=== PATIENT | male | born 1945 | race Caucasian/White ===

== ENCOUNTER 2019-11-29 22:05 | Inpatient (IN) | payer MEDICARE, BC ==
[~2019-11-29 22:05] MED LIST: Iopamidol-370 76% 500 ML 1 ML ONE
[2019-11-29 22:56] LABS: ALT (SGPT) 109 U/L (8-55); AST (SGOT) 140 U/L (5-34); Albumin 3.3 g/dL (3.4-4.8); Alkaline Phosphatase 559 U/L (40-110); Anion Gap 14 mmol/L (10-20); BUN (Urea Nitrogen) 15 mg/dL (8.4-25.7); Bilirubin, Total 5.4 mg/dL (0.2-1.2); Calc. Creatinine Clearance 0 mL/min (70-130); Calcium 9.2 mg/dL (7.8-10.44); Carbon Dioxide 22 mmol/L (23-31); Chloride 105 mmol/L (98-107); Estimated GFR-MDRD 89; Globulin 3.8 g/dL (2.4-3.5); Glucose 109 mg/dL (83-110); Potassium 4.2 mmol/L (3.5-5.1); Protein, Total 7.1 g/dL (5.8-8.1); Sodium 137 mmol/L (136-145)
[2019-11-29] MEDS ORDERED: Aspirin Chewable 81 MG TAB ONE (23:10)
[2019-11-29 23:12] LABS: #Eosinphils 0.1 thou/uL (0.0-0.7); #Lymphocytes 0.2 thou/uL (1.20-3.40); #Monocytes 0.4 thou/uL (0.11-0.59); #Neutrophils 2.6 thou/uL (1.40-6.50); %Basophils 0.5 % (0.0-1.0); %Eosinophils 1.9 % (0.0-10.0); %Lymphocytes 5.5 % (21.0-51.0); %Neutrophils 80.2 % (42.0-75.0); Hemoglobin 14.2 g/dL (14.0-18.0); Mean Corpuscular HGB CONC 32.2 g/dL (32.0-36.0); Mean Corpuscular Hemoglobin 30.8 pg (27.0-31.0); Mean Corpuscular Volume 95.6 fL (78.0-98.0); Mean Platelet Volume 10.3 fL (7.4-10.4); Platelet Count 37 thou/uL (130-400); RBC Distribution Width 15.1 % (11.5-14.5); White Blood Cell (WBC) Count 3.3 thou/uL (4.8-10.8)
[2019-11-29 23:30] LABS: Platelet Morphology Comment Appears Decreased; RBC Morphology Normal
[2019-11-29] MEDS ORDERED: hydrALAZINE 20 MG/ML VIAL ONE (23:52)
--- NOTE | 2019-11-29 23:58 | CT ---
CT ABDOMEN AND PELVIS WITH IV CONTRAST 11/29/2019 CLINICAL INFORMATION: Patient with history of liver cancer and colon cancer with worsening abdominal pain. COMPARISON: None. Technique: Multiple contiguous axial CT images are obtained through the abdomen and pelvis with IV contrast. Cor onal reformatted images are provided. FINDINGS: Lower Chest: There is bibasilar atelectasis. There is increased pleural density left lung base which could be related to trace pleural thickening as opposed to trace pleural fluid. If this does represent pleural fluid, this has increased density which is more suggestive of tiny amount of hemorr leon. Median sternotomy wires are present. There is partial visualization of aortic valve replacement. Vessels: Vascular calcifications are seen in the abdominal aorta and involving the iliac arteries. Abdomen: Portal vein:Patent Gallbladder: Decompressed, but there is suggestion of gallbladder wall thickening/edema which is nons pecific. Liver: Small in size with hypertrophy of the caudate lobe of the liver. Margins of the liver demonstr ate a nodular contour. An irregular low density area is seen in the lateral segment left hepatic lobe which may represent either a metastatic lesion or hepatocellular carcinoma. Spleen: Enlarged measuring 16.7 cm in craniocaudal dimensions. Pancreas: within normal limits. Adrenals: within normal limits. Kidneys: within normal limits. Bowel: Postoperative changes region of the rectum. Small amount retained fecal material seen througho ut the colon. There are postoperative changes in the region of the cecal apex which may be related to prior appendectomy. Postoperative changes related to anastomosis involving small bowel loop right lower quadrant is seen. Peritoneum: Small amount of fluid is seen in a presacral location. Trace amount of free fluid is also seen adjacent to the liver. Mesentery and Retroperitoneum: No enlarged mesenteric or retroperitoneal lymph nodes. Abdominal Wall: within normal limits. Pelvis: Reproductive Organs: No pelvic masses. Pelvis within normal limits. Bladder: within normal limits. Bones: Degenerative changes are seen in the spine with bilateral hip osteoarthritis. IMPRESSION: 1. Evidence of cirrhosis with a irregular hypodense lesion in the lateral segment left hepatic lobe w orrisome for neoplastic process. This could represent metastatic lesion or primary hepatic malignancy. 2. Gallbladder is incompletely distended, but the gallbladder wall does appear mildly thickened/edema tous. This is overall nonspecific and can be seen with hypoproteinemia, cholecystitis in the correct clinical scenario, secondary to liver disease versus other etiologies. 3. Splenomegaly. 4. Postoperative changes of loops of bowel in the abdomen. 5. Fluid in a presacral location with tiny amount of free fluid in the right upper quadrant. 6. Increased pleural density left lung base which is felt to be related to trace amount of pleural th ickening as opposed to trace hemorrhage in the pleural space.
--- NOTE | 2019-11-30 00:07 | RAD ---
EXAM: CHEST ONE VIEW HISTORY: Chest pain COMPARISON: None FINDINGS: Postoperative changes related to median sternotomy and cardiac valve replacement are noted. Pulmonary vasculature is within normal limits. There is linear scarring versus atelectasis present at each lung base. No consolidation or pleural fluid is appreciated on this exam. Vas calcifications are seen in the thoracic aorta. Degenerative changes are seen in the spine. IMPRESSION: No acute cardiopulmonary process
[2019-11-30 02:03] LABS: Troponin I 0.044 ng/mL (< 0.028)
[2019-11-30 05:14] LABS: Troponin I 0.025 ng/mL (< 0.028)
[2019-11-30] MEDS ORDERED: Ondansetron PF 4 MG/2 ML Vial ONE (06:37)
[2019-11-30] MEDS ORDERED: traMADol HCl 50 MG TAB PO PRN ×3 (10:57→16:45)
[2019-11-30] MEDS ORDERED: Ondansetron ODT 4 MG TAB PO PRN ×2 (10:57→11:17)
[2019-11-30] MEDS ORDERED: Ondansetron PF 4 MG/2 ML Vial IVP PRN (11:17)
[2019-11-30] MEDS ORDERED: Senokot S 8.6-50 MG TAB PO PRN (11:17)
[2019-11-30] MEDS ORDERED: Guaifenesin DM 100-10/5 ML UDCUP PO PRN (11:17)
--- NOTE | 2019-11-30 12:30 | HP ---
PRIMARY CARE PHYSICIAN: Dr. Tomlinson in [place]. LOCAL ONCOLOGIST: Dr. Velazquez. CHIEF COMPLAINT: High blood pressure and abdominal pain. HISTORY OF PRESENT ILLNESS: This is a 74-year-old white male with a past medical history of hypertension, hyperlipidemia, and AFib prior to a heart valve replacement years ago. He was diagnosed with colon cancer resected 10 years ago with an ostomy placed and then, a reconnection done fine with that until May of 2019, this year, and he had upper abdominal pain. Then, he went in and was seen by his primary care doctor, who diagnosed him with a liver mass. He was sent to [facility], they did a biopsy, and he was being treated with chemotherapy by his doctor at [facility] in conjunction with Dr. Velazquez, his local oncologist. The chemotherapy infusions were stopped a week or 2 ago and he was started on a new medication yesterday. His first dose of lenvatinib. He got his first dose yesterday morning and then, yesterday afternoon, he started having worsening of his "chronic abdominal pain and became very severe, right-sided, radiating to the left. It feels like a throbbing or similar pain like a toothache. Associated with his increased pain, he also started having some elevated blood pressures. He is not certain exactly how high they got, but they were over 100 on the diastolic side. He did call Dr. Velazquez's office and mentioned they told him to go into the emergency room. In the ER, the patient initially had blood pressure of 171/95, did get as high as 192/88 here. The patient was given Nitro-Bid and hydralazine along with a dose of aspirin and Zofran. His blood pressure has now come down to normal 129/77. His pain is back down to normal as well. He does have some underlying shortness of breath. This has been going on for a while, but no other new symptoms. REVIEW OF SYSTEMS: CONSTITUTIONAL: No fevers. No chills. EYES: No double vision or blurred vision. ENT: No congestion, drainage, or sore throat. CARDIOVASCULAR: No chest pain. No palpitations or racing heart. PULMONARY: Some mild shortness of breath that is at his baseline. No coughing, wheezing, or chest tightness. GASTROINTESTINAL: See HPI. He did have some nausea and vomiting about 3 times since yesterday. He does not usually get nauseated and vomit. He did have some constipation that has been relieved with daily, he thinks MiraLAX. Occasionally, he will have loose stool or diarrhea from that, but no more constipation. GENITOURINARY: No dysuria or hematuria. He has had some very dark urine. MUSCULOSKELETAL: No muscle aches, joint pain. SKIN: No rashes or lesions noted. NEUROLOGIC: No numbness, tingling, or focal weakness. PAST MEDICAL HISTORY: 1. Hypertension. 2. Hyperlipidemia. 3. Colon cancer. 4. Liver metastases. Uncertain if it is from his colon cancer. 5. Atrial fibrillation, resolved with previous ablation. PAST SURGICAL HISTORY: 1. Heart valve replacement. He is not sure which valve, possibly the aortic valve. 2. Atrial ablation. 3. Appendectomy. 4. Colostomy with later revision. 5. Liver biopsy. SOCIAL HISTORY: The patient used to drink daily. He quit in May of 2019 with his diagnosis of liver mass. No tobacco or illicit drug use. He is . He is a full code. Should he be incapacitated, his would be his medical decision maker. Her name is Citlaly Villeda. FAMILY HISTORY: Mother of leukemia at age 86. Dad had hardening of the arteries. ALLERGIES: NO KNOWN DRUG ALLERGIES. CURRENT MEDICATIONS: 1. Lenvatinib 10 mg daily. 2. Aspirin 81 mg daily. 3. Atorvastatin 10 mg daily. 4. Lisinopril 10 mg daily. 5. Ondansetron as needed. 6. Protonix 40 mg daily. 7. Tramadol 50 mg as needed. 8. MiraLAX daily. PHYSICAL EXAMINATION: VITAL SIGNS: Blood pressure 129/77, pulse 78, respirations 18, temperature 98.4, O2 saturation 98% on room air. GENERAL: This is a well-developed, thin elderly male in no acute distress. HEENT: Pupils equal, round, and reactive to light. Little bit of scleral icterus. Oropharynx clear without lesions, erythema, or exudate. NECK: Supple. No lymphadenopathy. No thyroid nodules or enlargement. No JVD. HEART: Regular rate and rhythm. No murmurs, rubs, or gallops. LUNGS: Clear to auscultation bilaterally. No wheezes, crackles, or rhonchi. ABDOMEN: Soft. Does have tenderness to palpation in the midepigastric right upper quadrant and to the right of the umbilicus, specifically, and then, there is mild tenderness to palpation throughout. No specific masses palpable. No hepatosplenomegaly. Normoactive bowel sounds. EXTREMITIES: No clubbing, cyanosis, or edema. SKIN: No rashes or lesions noted. NEUROLOGIC: The patient moves all extremities equally. No facial droop. PSYCHIATRIC: Alert and oriented x3. Normal mood and affect. LABORATORY DATA: White blood cell count 3.3 with 80% neutrophils. Hemoglobin and hematocrit are normal, platelet count 37 with no previous to compare. Complete metabolic panel is notable for a carbon dioxide of 22, a total bilirubin of 5.4, up from 1.6 last month. AST of 140, ALT of 109, alkaline phosphatase of 559, albumin of 3.3. The rest was normal. Brain natriuretic peptide was mildly elevated at 118. His troponins were indeterminate at 0.029, second was 0.044, last one was 0.025. CK-MB was negative. EKG done in the emergency room shows normal sinus rhythm with some left atrial enlargement, some left axis deviation and left ventricular hypertrophy. No significant ST-segment changes or T-wave inversions. Chest x-ray, I did review the chest x-ray done in the emergency room along with the radiologist's report. There is no acute cardiopulmonary process visualized. There is an old valve replacement. CT of the abdomen and pelvis done in the emergency room with contrast shows evidence of cirrhosis with an irregular hypodense lesion in the lateral segment of the left hepatic lobe, worrisome for neoplastic process. Also, with gallbladder incompletely distended, but gallbladder wall is mildly thickened, splenomegaly, with postoperative changes of loops of bowel in the abdomen, and there is a fluid in the presacral location with a tiny amount of free fluid in the right upper quadrant and increased pleural density in left lung base, likely pleural thickening. ASSESSMENT: 1. Elevated blood pressure likely secondary to the patient's increased pain, now improved. We will monitor in the hospital. I will make sure it does not go up without further medication administered. Might need to increase his home medications. We will discontinue the home medicines right now. 2. Indeterminate troponin, likely due to cardiac strain from the elevated blood pressures. No evidence of acute coronary syndrome. 3. Chronic abdominal pain from cancer with severe worsening, possibly a side effect of his chemotherapy medication. We will hold that medicine for now. We will consult Dr. Velazquez to give recommendations for where to go from here, and if the patient should continue medicine or if it needs to be stopped. 4. Gastrointestinal prophylaxis. We will continue the patient's Protonix. 5. Hyperlipidemia. We will continue the patient's statin. 6. Deep venous thrombosis prophylaxis. We will put the patient on sequential compression devices while in bed. No heparin or Lovenox due to his severely low platelets. CODE STATUS: The patient is a full code. Should he be incapacitated, his Citlaly Villeda will be his medical decision maker. I will have Palliative Care connect up with the patient in the hospital. Job ID: [id number]
[2019-11-30] MEDS ORDERED: Morphine 2 MG/ML VIAL SLOW IVP PRN (16:15)
[2019-11-30] MEDS ORDERED: Nitroglycerin 2% Ointment 1 INCH/1 GM Packet TOP PRN (17:38)
[2019-11-30] MEDS: Atorvastatin Calcium 10 MG TAB PO SCH (20:26)
--- NOTE | 2019-11-30 20:51 | CON ---
DATE OF CONSULTATION: REASON FOR CONSULT: Hepatocellular carcinoma. HISTORY OF PRESENT ILLNESS: Mr. Villeda is a 74-year-old gentleman with a history of alcohol cirrhosis, hypertension, atrial fibrillation, and past history of T2 N0 adenocarcinoma of the rectum in 2009. He underwent chemotherapy and radiation therapy at [facility] by Dr. Weiss. Recently, he was diagnosed with hepatocellular carcinoma associated with portal vein thrombosis. He underwent treatment with Tecentriq and bevacizumab at [facility] and tolerated poorly. He saw Dr. Weiss earlier this month, who recommended starting lenvatinib. The patient took his first dose of 4 mg yesterday morning. Yesterday afternoon, he began to have worsening abdominal pain and elevated blood pressure. He was sent to the emergency room for evaluation. His initial blood pressure was 171/95. He was given nitro sublingual and hydralazine and started on a Nitro-patch. This morning, he began to have nausea and vomiting with a headache. He was admitted for hypertension. The patient has chronic abdominal pain with diarrhea. He takes Protonix and tramadol at home. He took an extra dose last night with no improvement in his abdominal pain. Currently, he denies any shortness of breath. He does have some abdominal tenderness, but much improved from this morning. He complains of fatigue. PAST MEDICAL HISTORY: 1. Hepatocellular carcinoma. 2. Portal vein thrombosis. 3. Rectal adenocarcinoma. 4. Hypertension. 5. Atrial fibrillation. 6. Cirrhosis. PAST SURGICAL HISTORY: 1. Appendectomy. 2. Aortic valve replacement. 3. Colon resection. ALLERGIES: NO KNOWN DRUG ALLERGIES. HOME MEDICATIONS: 1. Aspirin 81 mg. 2. Atorvastatin 10 mg. 3. Lisinopril 10 mg. 4. Tramadol 50 mg p.r.n. 5. Zofran p.r.n. 6. Lenvatinib 4 mg daily. FAMILY HISTORY: Mother had leukemia and breast cancer. SOCIAL HISTORY: , has 2 children. Lives with his spouse. Long-standing history of alcohol abuse, quit earlier this year. Chews tobacco. REVIEW OF SYSTEMS: A 10-point review of systems is negative except for noted in HPI. PHYSICAL EXAMINATION: VITAL SIGNS: Pulse 78, respiratory rate 18, temperature is 98.4, BP is 129/77, and he is 98% on room air. GENERAL: Chronically ill-appearing male, in no acute distress. HEENT: Normocephalic and atraumatic. Pupils are equal and reactive to light. Sclerae are icteric. NECK: Supple. CV: Regular rate and rhythm. LUNGS: Clear anterior. ABDOMEN: Soft and nontender. Bowel sounds are positive. EXTREMITIES: No clubbing or cyanosis. SKIN: No rash. Slightly jaundiced. NEUROLOGIC: Nonfocal. PERTINENT LABORATORY DATA AND X-RAYS: WBCs are 3.3, hemoglobin 14.2, hematocrit 44, platelet count is 37,000. He has 80% neutrophils, 5% lymphocytes. Sodium is 137, potassium 4.2, chloride 105, CO2 is 22, BUN is 15, creatinine 0.85, calcium 9.2, bilirubin 5.2, AST is 140, ALT is 109, alkaline phosphatase is 559. Troponin is 0.025. BNP is 118. Serum total protein is 7.1, albumin 3.3, globulin 3.8, and lipase is 62. Abdominal and pelvis CT shows a cirrhotic liver with a hypodense lesion in the left hepatic lobe. It shows thickened gallbladder, splenomegaly and postoperative changes from his lower anterior resection. ASSESSMENT: 1. Hepatocellular carcinoma. 2. Acute transaminitis. 3. Hypertension. 4. Acute on chronic abdominal pain. DISCUSSION: The patient's pain has improved since his admission. His blood pressure is also stable. His bilirubin has increased from 1.6 to 5.4 today, possibly secondary to progression of disease. The patient has been off treatment for the last several weeks. We will continue his tramadol for pain and add low-dose morphine for severe pain. His lenvatinib has been held. Hypertension and headache are side effect from this medication, although it is unlikely that one dose would cause worsening of blood pressure, we will hold it for now and possibly rechallenge prior to discharge. Palliative Care will see the patient to discuss goals of care. Thank you for the consult. Case has been discussed with Dr. Velazquez. Job ID: [id number]
[2019-12-01 02:17] LABS: Troponin I 0.015 ng/mL (< 0.028)
[2019-12-01 04:53] LABS: #Eosinphils 0.1 thou/uL (0.0-0.7); #Lymphocytes 0.4 thou/uL (1.20-3.40); #Monocytes 0.4 thou/uL (0.11-0.59); #Neutrophils 1.7 thou/uL (1.40-6.50); %Eosinophils 2.7 % (0.0-10.0); %Lymphocytes 14.9 % (21.0-51.0); %Monocytes 14.7 % (0.0-10.0); %Neutrophils 67.6 % (42.0-75.0); Hemoglobin 12.9 g/dL (14.0-18.0); Mean Corpuscular HGB CONC 31.4 g/dL (32.0-36.0); Mean Corpuscular Hemoglobin 30.2 pg (27.0-31.0); Mean Corpuscular Volume 96.3 fL (78.0-98.0); Mean Platelet Volume 10.7 fL (7.4-10.4); Platelet Count 33 thou/uL (130-400); RBC Distribution Width 15.3 % (11.5-14.5); Red Blood Cell (RBC) Count 4.28 mill/uL (4.70-6.10); White Blood Cell (WBC) Count 2.5 thou/uL (4.8-10.8)
[2019-12-01 05:03] LABS: Anion Gap 12 mmol/L (10-20); BUN (Urea Nitrogen) 19 mg/dL (8.4-25.7); Calc. Creatinine Clearance 92 mL/min (70-130); Calcium 8.9 mg/dL (7.8-10.44); Carbon Dioxide 26 mmol/L (23-31); Chloride 105 mmol/L (98-107); Estimated GFR-MDRD 89; Glucose 86 mg/dL (83-110); Potassium 4.6 mmol/L (3.5-5.1); Sodium 138 mmol/L (136-145)
[2019-12-01 05:08] LABS: Troponin I 0.014 ng/mL (< 0.028)
--- NOTE | 2019-12-01 08:03 | PDOC.HOSPP ---
- Subjective Encounter Date: 12/01/19 Encounter Time: 10:30 Subjective: Patient with resolution of abdominal pain. No other complaints. BP doing well overnight. - Objective Vital Signs & Weight: Vital Signs (12 hours) Temp Pulse Resp BP Pulse Ox 12/01/19 04:36 98.9 F 76 16 111/58 L 95 Weight Weight 182 lb 9.6 oz I&O: 11/30/19 12/01/19 12/02/19 06:59 06:59 06:59 Intake Total 720 Balance 720 Result Diagrams: 12/01/19 04:30 12/01/19 04:30 Hospitalist ROS - Review of Systems Constitutional: denies: fever, chills Respiratory: reports: shortness of breath (mild, baseline). denies: cough Cardiovascular: denies: chest pain, palpitations Gastrointestinal: denies: nausea, vomiting, abdominal pain - Medication Medications: Active Medications Generic Name Dose Route Start Last Admin Trade Name Freq PRN Reason Stop Dose Admin Atorvastatin Calcium 10 mg 11/30/19 21:00 11/30/19 20:26 Lipitor PO 10 mg HS EULALIA Administration Ondansetron HCl 4 mg 11/30/19 10:57 11/30/19 16:34 Zofran Odt PO 4 mg Q4H PRN Administration Nausea/Vomiting Tramadol HCl 100 mg 11/30/19 16:14 11/30/19 16:28 Ultram PO 100 mg Q4H PRN Administration Moderate Pain (4-6) - Exam General Appearance: NAD, awake alert Eye: scleral icterus ENT: moist mucosa Heart: RRR, no murmur, no gallops, no rubs Respiratory: CTAB, no wheezes, no rales, no ronchi Gastrointestinal: soft, non-tender, non-distended, normal bowel sounds Psychiatric: normal affect, normal behavior, A&O x 3 Hosp A/P (1) Hepatocellular carcinoma Code(s): C22.0 - LIVER CELL CARCINOMA Status: Acute (2) Abdominal pain Code(s): R10.9 - UNSPECIFIED ABDOMINAL PAIN Status: Acute (3) Hypertension Code(s): I10 - ESSENTIAL (PRIMARY) HYPERTENSION Status: Chronic Qualifiers: Hypertension type: essential hypertension Qualified Code(s): I10 - Essential (primary) hypertension (4) Hyperlipidemia Code(s): E78.5 - HYPERLIPIDEMIA, UNSPECIFIED Status: Chronic (5) Elevated LFTs Code(s): R79.89 - OTHER SPECIFIED ABNORMAL FINDINGS OF BLOOD CHEMISTRY Status : Acute (6) Pancytopenia Code(s): D61.818 - OTHER PANCYTOPENIA Status: Acute - Plan Holding Lenvatinib. Given elevated transaminases will go ahead and hold statin as well Bilirubin continuing to climb, checking U/S gallbladder but suspect due to HCC progression Disposition per oncology- trying to set up transfer to [facility] No lovenox/heparin due to thrombocytopenia, on SCDs
[2019-12-01] MEDS ORDERED: LENVATINIB MESYLATE 4 MG PO SCH (09:00)
[2019-12-01] MEDS ORDERED: Enoxaparin Sodium 40 MG/0.4 ML SYRINGE SC SCH (09:00)
[2019-12-01 09:13] LABS: ALT (SGPT) 143 U/L (8-55); AST (SGOT) 185 U/L (5-34); Alkaline Phosphatase 532 U/L (40-110); Bilirubin, Direct 6.1 mg/dL (0.1-0.3); Protein, Total 6.5 g/dL (5.8-8.1)
[2019-12-01] MEDS: Aspirin Chewable 81 MG TAB PO SCH (09:33)
[2019-12-01] MEDS: Lisinopril 10 MG TAB PO SCH (09:33)
--- NOTE | 2019-12-01 10:23 | PDOC.MOPN ---
Interval History: pain resolved - Vital Signs Vital Signs: Vital Signs (12 hours) Temp Pulse Resp BP BP Pulse Ox 12/01/19 09:33 122/60 12/01/19 04:36 98.9 F 76 16 111/58 L 95 Weight Weight 182 lb 9.6 oz - Physical Exam General: Alert, Oriented x3, No acute distress HEENT: Atraumatic, PERRLA, EOMI, Mucous membr. moist/pink, Other (jaundice) Lungs: Clear to auscultation, Normal air movement Cardiovascular: Regular rate Abdomen: Normal bowel sounds Neurological: Normal speech - Labs Result Diagrams: 12/01/19 04:30 12/01/19 04:30 Lab results: Laboratory Results - last 24 hr 12/01/19 04:30: Total Bilirubin 8.0 H, Direct Bilirubin 6.1 H, AST 185 H, ALT 143 H, Alkaline Phosphatase 532 H, Serum Total Protein 6.5, Albumin 3.0 L 12/01/19 04:30: Troponin I 0.014 12/01/19 04:30: WBC 2.5 L, RBC 4.28 L, Hgb 12.9 L, Hct 41.2 L, MCV 96.3, MCH 30.2, MCHC 31.4 L, RDW 15.3 H, Plt Count 33 L, MPV 10.7 H, Neutrophils % 67.6, Lymphocytes % 14.9 L, Monocytes % 14.7 H, Eosinophils % 2.7, Basophils % 0.0, Neutrophils # 1.7, Lymphocytes # 0.4 L, Monocytes # 0.4, Eosinophils # 0.1, Basophils # 0.0 12/01/19 04:30: Sodium 138, Potassium 4.6, Chloride 105, Carbon Dioxide 26, Anion Gap 12, BUN 19, Creatinine 0.85, Estimated GFR (MDRD) 89, Glucose 86, Calcium 8.9 12/01/19 01:45: Troponin I 0.015 Status: lab reviewed by me A/P - Problem (1) Elevated LFTs Current Visit: Yes Code(s): R79.89 - OTHER SPECIFIED ABNORMAL FINDINGS OF BLOOD CHEMISTRY Status: Acute (2) Hepatocellular carcinoma Current Visit: Yes Code(s): C22.0 - LIVER CELL CARCINOMA Status: Acute (3) Pancytopenia Current Visit: Yes Code(s): D61.818 - OTHER PANCYTOPENIA Status: Acute - Plan Plan: continue pain meds u/s for gallbladder possible transfer to [facility]
[2019-12-01 11:05] VITALS: BMI 26.9
--- NOTE | 2019-12-01 16:16 | ULT ---
ABDOMINAL ULTRASOUND: 12/01/19 HISTORY: Hepatocellular carcinoma. Elevated bilirubin. FINDINGS: Exam is limited. The pancreas, left lobe of the liver, and abdominal aorta are not visualized due to overlying bowel gas. The right lobe of the liver demonstrates no definite abnormality. The spleen is enlarged measuring 17 .4 cm in length. Small shadowing gallstones are seen. The gallbladder wall is thickened measuring 4 m m. The common duct measures 4 mm in diameter. The kidneys are normal. No evidence of ascites are seen . IVC is unremarkable. IMPRESSION: 1. Limited exam. 2. Splenomegaly. 3. Cholelithiasis with gallbladder wall thickening. POS: OFF
[2019-12-01] MEDS: Atorvastatin Calcium 10 MG TAB PO SCH (20:15)
--- NOTE | 2019-12-02 07:36 | PDOC.HOSPP ---
- Subjective Encounter Date: 12/02/19 Encounter Time: 09:40 Subjective: Patient with stable abdominal pain, improved from admit. Worsened Jaundice. No other complaints. - Objective Vital Signs & Weight: Vital Signs (12 hours) Temp Pulse Resp BP Pulse Ox 12/02/19 03:35 98.4 F 67 16 130/68 93 L 12/01/19 20:00 76 16 117/59 L 98 Weight Admit Weight 172 lb 12.8 oz Weight 182 lb 9.6 oz I&O: 12/01/19 12/02/19 12/03/19 06:59 06:59 06:59 Intake Total 720 720 Balance 720 720 Result Diagrams: 12/01/19 04:30 12/01/19 04:30 Hospitalist ROS - Review of Systems Constitutional: denies: fever, chills Respiratory: denies: cough, shortness of breath Cardiovascular: denies: chest pain, palpitations Gastrointestinal: denies: nausea, vomiting - Medication Medications: Active Medications Generic Name Dose Route Start Last Admin Trade Name Freq PRN Reason Stop Dose Admin Aspirin 81 mg 12/01/19 09:00 12/01/19 09:33 Aspirin Chewable PO 81 mg DAILY EULALIA Administration Atorvastatin Calcium 10 mg 11/30/19 21:00 12/01/19 20:15 Lipitor PO 10 mg HS EULALIA Administration Lisinopril 10 mg 12/01/19 09:00 12/01/19 09:33 Zestril PO 10 mg DAILY EULALIA Administration Ondansetron HCl 4 mg 11/30/19 10:57 11/30/19 16:34 Zofran Odt PO 4 mg Q4H PRN Administration Nausea/Vomiting Pantoprazole Sodium 40 mg 12/01/19 09:00 12/01/19 09:33 Protonix PO 40 mg DAILY EULALIA Administration Tramadol HCl 100 mg 11/30/19 16:14 11/30/19 16:28 Ultram PO 100 mg Q4H PRN Administration Moderate Pain (4-6) - Exam General Appearance: NAD, awake alert Eye: scleral icterus ENT: moist mucosa Heart: RRR, no murmur, no gallops, no rubs Respiratory: CTAB, no wheezes, no rales, no ronchi Gastrointestinal: soft, non-distended, normal bowel sounds Gastrointestinal - other findings: mild TTP diffusely Psychiatric: normal affect, normal behavior, A&O x 3 Hosp A/P (1) Hepatocellular carcinoma Code(s): C22.0 - LIVER CELL CARCINOMA Status: Acute (2) Abdominal pain Code(s): R10.9 - UNSPECIFIED ABDOMINAL PAIN Status: Acute (3) Hypertension Code(s): I10 - ESSENTIAL (PRIMARY) HYPERTENSION Status: Chronic Qualifiers: Hypertension type: essential hypertension Qualified Code(s): I10 - Essential (primary) hypertension (4) Hyperlipidemia Code(s): E78.5 - HYPERLIPIDEMIA, UNSPECIFIED Status: Chronic (5) Liver failure Status: Acute (6) Pancytopenia Code(s): D61.818 - OTHER PANCYTOPENIA Status: Acute - Plan Holding Lenvatinib. Given elevated transaminases will go ahead and hold statin as well Bilirubin continuing to climb- progressive liver failure, U/S gallbladder with some stones and thickened wall but no CBD dilation Disposition per oncology- trying to set up transfer to [facility] No lovenox/heparin due to thrombocytopenia, on SCDs
[2019-12-02] MEDS: Aspirin Chewable 81 MG TAB PO SCH (08:45)
[2019-12-02] MEDS: Lisinopril 10 MG TAB PO SCH (08:45)
--- NOTE | 2019-12-02 10:44 | PDOC.FMACP ---
Advance Care Planning - Problem (1) Palliative care encounter Status: Acute Code(s): Z51.5 - ENCOUNTER FOR PALLIATIVE CARE (2) Abdominal pain Status: Acute Code(s): R10.9 - UNSPECIFIED ABDOMINAL PAIN (3) Elevated LFTs Status: Acute Code(s): R79.89 - OTHER SPECIFIED ABNORMAL FINDINGS OF BLOOD CHEMISTRY (4) Hepatocellular carcinoma Status: Acute Code(s): C22.0 - LIVER CELL CARCINOMA (5) Liver failure Status: Acute (6) Pancytopenia Status: Acute Code(s): D61.818 - OTHER PANCYTOPENIA - Note Participants: patient, family, palliative care Summary: Palliative Care introduced Advanced Care Planning to Mr Dorsey and his Citlaly who was via phone, allowed opportunity to decline. The diagnosis, prognosis and goals of care were discussed. Appropriate forms and documentation to accomplish the goals of care were discussed. All questions were answered. He does not desire to complete a MPOA but continue to have his make decisions in the event he can not. Discussed Directive to Physicians and provided information, he will further discuss with his . We discussed hoping for the best, planning for the worst thus allowing to respond and never react to decisions. Continue with full resuscitation, discussed potential to transition to [facility]. The Palliative Care Team will assist with completion of any outstanding forms that are identified. Time Spent (mins): 20
--- NOTE | 2019-12-02 10:47 | PDOC.PALPN ---
Palliative Progress Note - Subjective Awake, alert. Hopeful to go to [facility] for evaluation for further treatment - Objective Vital Signs: Vital Signs - Most Recent Temp Pulse Resp BP Pulse Ox 97.7 F 89 16 127/71 97 12/02/19 08:40 12/02/19 08:40 12/02/19 08:40 12/02/19 08:45 12/02/19 08:40 - Physical Exam Constitutional: ill appearing HEENT: EOMI, moist MMs, scleral icterus Respiratory: no wheezing, unlabored breathing Cardiovascular: RRR Gastrointestinal: continent, positive bowel sounds Deviation from normal: mild distention Genitourinary: continent Musculoskeletal: no cyanosis, pulses present Neurology: moves all 4 limbs, no focal deficits Skin: cap refill <2 seconds, no lesions Deviation from normal: icteric Psychiatric: A&O x 3, flat affect - Assessment (1) Palliative care encounter Code(s): Z51.5 - ENCOUNTER FOR PALLIATIVE CARE Current Visit: Yes Status: Acute (2) Abdominal pain Code(s): R10.9 - UNSPECIFIED ABDOMINAL PAIN Current Visit: Yes Status: Acute (3) Elevated LFTs Code(s): R79.89 - OTHER SPECIFIED ABNORMAL FINDINGS OF BLOOD CHEMISTRY Current Visit: Yes Status: Acute (4) Hepatocellular carcinoma Code(s): C22.0 - LIVER CELL CARCINOMA Current Visit: Yes Status: Acute (5) Liver failure Current Visit: Yes Status: Acute (6) Pancytopenia Code(s): D61.818 - OTHER PANCYTOPENIA Current Visit: Yes Status: Acute - Plan Plan: Short life review, lives in the home he was born in. 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 He is hopeful to transition back to [facility] for evaluation for further treatment options. If he is unable to receive further treatment or tolerate he would like to transition home with hospice. Discussed with and patient visiting with home health companies that have a hospice element to transition to when appropriate. Emotional support Therapeutic listening. Communicated with Dr Dorsey [[id number]] minutes spent on this encounter with >50% of the time in counseling and coordination of care. - ROS Constitutional: alert, weakness ENT: other (deniesthroat irritation, difficulity swallowing) Respiratory: shortness of breath with extertion Cardiology: other (Denies chest pain, discomfort) Gastrointestinal: other (denies nausea or vomiting)
--- NOTE | 2019-12-02 12:32 | PDOC.MOPN ---
Interval History: mild pain today. - Vital Signs Vital Signs: Vital Signs (12 hours) Temp Pulse Resp BP BP Pulse Ox 12/02/19 11:44 98.6 F 71 18 135/67 97 12/02/19 08:45 127/71 12/02/19 08:40 97.7 F 89 16 127/71 97 12/02/19 08:00 97 12/02/19 03:35 98.4 F 67 16 130/68 93 L Weight Admit Weight 172 lb 12.8 oz Weight 182 lb 9.6 oz - Physical Exam General: Alert Lungs: Clear to auscultation, Normal air movement Cardiovascular: Regular rate, Normal S1, Normal S2, No murmurs, Gallops, Rubs Abdomen: Normal bowel sounds, Soft, No tenderness, No hepatospenomegaly, No masses Neurological: Normal speech - Labs Result Diagrams: 12/01/19 04:30 12/01/19 04:30 Status: lab reviewed by me A/P - Problem (1) Elevated LFTs Current Visit: Yes Code(s): R79.89 - OTHER SPECIFIED ABNORMAL FINDINGS OF BLOOD CHEMISTRY Status: Acute (2) Hepatocellular carcinoma Current Visit: Yes Code(s): C22.0 - LIVER CELL CARCINOMA Status: Acute (3) Pancytopenia Current Visit: Yes Code(s): D61.818 - OTHER PANCYTOPENIA Status: Acute - Plan Plan: Spoke with [facility], declined transfer at this time Consult Dr. Garcia for opinion continue pain medications I spoke with and updated.
--- NOTE | 2019-12-02 19:38 | CON ---
DATE OF CONSULTATION: 12/02/2019 REASON FOR CONSULT: Elevated liver enzymes in setting of history of hepatoma and admission for abdominal pain. HISTORY OF PRESENT ILLNESS: Mr. Villeda is a pleasant 74-year-old gentleman who was admitted to the hospital on the recommendation of his oncologist on the . Mr. Villeda apparently was diagnosed with a hepatoma in May 2019. This was in [facility] in [place] when he was found to have a mass. His notes it was invading his portal system at that time. He ultimately was sent to [facility] and had radiation treatments for 3 weeks and then was placed on IV chemotherapy and then per Oncology that was Tecentriq and bevacizumab. Apparently, he tolerated these medicines poorly. He often had abdominal pain, especially in the right lower abdomen and his oncologist earlier this month recommended changing to lenvatinib. He took his 1st dose on Friday morning and after that. He began to have abdominal pain in the late afternoon. It became worse and worse with elevated blood pressures. His oncologist told him to come to the emergency room. The pain was in the right lower abdomen and would kind of move diagonally up to the left mid abdomen. He has had this pain most days anyway. Usually it is not present in the morning, but worsens during the day. It does not relate to meals. It does not radiate to his back. It is not associated with nausea, vomiting, or diarrhea. He came to the emergency room for the pain and his blood pressure was treated and he was went ahead and admitted, because his bilirubin was up. Apparently, he had some nausea, vomiting and headache on the day of admission. Also, he had some diarrhea. The oncologist note notes he has had complaints of chronic diarrhea. They felt it was related to chemotherapy in the past. The patient seems less concerned about that. He denies any fever, chills. He denies any hematemesis, melena, or hematochezia. Denies any rashes myalgias or arthralgias. He states the pain that was present on Friday that made him call his doctor and to come to the hospital is back to a baseline, very minimal. PAST MEDICAL HISTORY: 1. Hepatocellular carcinoma as above. 2. 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 3. History of rectal adenocarcinoma in the past with radiation chemotherapy, resection and then ostomy takedown. 4. Hypertension. 5. Atrial fibrillation. 6. Cirrhosis, was diagnosed when his hepatoma was diagnosed. His notes that there was no other underlying liver disease that were found. PAST SURGICAL HISTORY: Appendectomy, aortic valve replacement, colon resection, ostomy with an ostomy takedown. ALLERGIES: NONE KNOWN. MEDICATIONS: At home: 1. Aspirin. 2. Atorvastatin. 3. Lisinopril. 4. Tramadol. 5. Zofran p.r.n. 6. Lenvatinib, he only took 1 day of that. Medications here: 1. Aspirin. 2. Lipitor. 3. Robitussin. 4. Lisinopril. 5. P.r.n. morphine. 6. Nitroglycerin ointment to chest p.r.n. 7. Zofran p.r.n. 8. Protonix 40 mg daily. Senokot. 9. Tramadol. FAMILY HISTORY: Leukemia and breast cancer. SOCIAL HISTORY: , has 2 children. Lives with his spouse. History of heavy alcohol use before this diagnosis, which he stopped in May of this year. He does chew tobacco. REVIEW OF SYSTEMS: As per HPI. PHYSICAL EXAMINATION: GENERAL: The patient is resting comfortably in bed. He is eating a regular diet. VITAL SIGNS: Temperature is 98, pulse 81 and blood pressure 135/67. LUNGS: Clear. HEART: Regular without clicks or murmurs. ABDOMEN: Soft and nontender without rebound or guarding. There is no palpable hepatosplenomegaly. EXTREMITIES: No clubbing, cyanosis, or edema. LABORATORY STUDIES: White count 2.5 yesterday, hemoglobin was 12.9 yesterday, platelet count 33,000 yesterday. Electrolytes normal. BUN and creatinine 19 and 0.85 on 11/30. Bilirubin was 5.4 on 11/28, on 11/30, it was 8, it was 1.6 on 11/01/2019. Direct bilirubin was 6.1. AST and ALT 184 and 143, alkaline phosphatase 532. bilirubin of 1.6. AST, ALT of 89, 82 and alkaline phosphatase of 438 on 11/01/2019. Lipase was 62 on the . TSH 0.019 in October. ASSESSMENT: The etiology of patient's abdominal pain is unclear. He started a new chemotherapy drug, took 1 dose. I am not sure why that medicine specifically would cause him to have abdominal pain. I suspect it was probably not related. More concerning is the association with his abdominal pain, the elevation in bilirubin. He has had a history of portal vein thrombosis. The radiologist specifically says they do not see any on the CT here. I will have to review that film with them. Additionally, the patient was noted to have some gallstones on ultrasound performed yesterday, but no dilated duct, it was 4 mm. He has some splenomegaly. The pain, however, seems very uncharacteristic of biliary colic and that it is in the right lower abdomen, it is not related to meals, just seem to worsen through the day. PLAN: At this point in time, I would go ahead and get an MRCP and ask for with and without contrast, so we can look for any signs of portal vein invasion or an enlargement of the mass mass protocol as well. I would recheck labs tomorrow. As he is feeling well, continue diet for now. Job ID: [id number]
[2019-12-02] MEDS: Atorvastatin Calcium 10 MG TAB PO SCH (21:15)
[2019-12-03 04:45] LABS: INR-International Normal Ratio 1.1; Prothrombin Time 13.9 sec (12.0-14.7)
[2019-12-03 05:07] LABS: ALT (SGPT) 114 U/L (8-55); AST (SGOT) 123 U/L (5-34); Albumin 2.9 g/dL (3.4-4.8); Alkaline Phosphatase 491 U/L (40-110); Anion Gap 10 mmol/L (10-20); BUN (Urea Nitrogen) 19 mg/dL (8.4-25.7); Bilirubin, Total 4.1 mg/dL (0.2-1.2); Calc. Creatinine Clearance 88 mL/min (70-130); Carbon Dioxide 28 mmol/L (23-31); Chloride 104 mmol/L (98-107); Estimated GFR-MDRD Greater than 90; Globulin 3.7 g/dL (2.4-3.5); Glucose 91 mg/dL (83-110); Protein, Total 6.6 g/dL (5.8-8.1); Sodium 138 mmol/L (136-145)
--- NOTE | 2019-12-03 07:16 | PDOC.HOSPP ---
- Subjective Encounter Date: 12/03/19 Encounter Time: 09:00 Subjective: Patient without further pain. No N/V. No cough/SOB. - Objective Vital Signs & Weight: Vital Signs (12 hours) Temp Pulse Resp BP Pulse Ox 12/03/19 04:45 97.9 F 75 18 136/66 98 12/03/19 00:00 98.4 F 12/02/19 20:00 99.0 F 70 16 143/67 H 97 Weight Admit Weight 172 lb 12.8 oz Weight 170 lb 3.2 oz I&O: 12/02/19 12/03/19 12/04/19 06:59 06:59 06:59 Intake Total 720 720 Balance 720 720 Result Diagrams: 12/01/19 04:30 12/03/19 04:26 Hospitalist ROS - Review of Systems Constitutional: denies: fever, chills Respiratory: denies: cough, shortness of breath Cardiovascular: denies: chest pain, palpitations Gastrointestinal: denies: nausea, vomiting, abdominal pain - Medication Medications: Active Medications Generic Name Dose Route Start Last Admin Trade Name Freq PRN Reason Stop Dose Admin Aspirin 81 mg 12/01/19 09:00 12/02/19 08:45 Aspirin Chewable PO 81 mg DAILY EULALIA Administration Atorvastatin Calcium 10 mg 11/30/19 21:00 12/02/19 21:15 Lipitor PO 10 mg HS EULALIA Administration Lisinopril 10 mg 12/01/19 09:00 12/02/19 08:45 Zestril PO 10 mg DAILY EULALIA Administration Ondansetron HCl 4 mg 11/30/19 10:57 11/30/19 16:34 Zofran Odt PO 4 mg Q4H PRN Administration Nausea/Vomiting Pantoprazole Sodium 40 mg 12/01/19 09:00 12/02/19 08:45 Protonix PO 40 mg DAILY EULALIA Administration Tramadol HCl 100 mg 11/30/19 16:14 11/30/19 16:28 Ultram PO 100 mg Q4H PRN Administration Moderate Pain (4-6) - Exam General Appearance: NAD, awake alert ENT: moist mucosa Heart: RRR, no murmur, no gallops, no rubs Respiratory: CTAB, no wheezes, no rales, no ronchi Gastrointestinal: soft, non-tender, non-distended, normal bowel sounds Psychiatric: normal affect, normal behavior, A&O x 3 Hosp A/P (1) Hepatocellular carcinoma Code(s): C22.0 - LIVER CELL CARCINOMA Status: Acute (2) Abdominal pain Code(s): R10.9 - UNSPECIFIED ABDOMINAL PAIN Status: Acute (3) Hypertension Code(s): I10 - ESSENTIAL (PRIMARY) HYPERTENSION Status: Chronic Qualifiers: Hypertension type: essential hypertension Qualified Code(s): I10 - Essential (primary) hypertension (4) Hyperlipidemia Code(s): E78.5 - HYPERLIPIDEMIA, UNSPECIFIED Status: Chronic (5) Liver failure Status: Acute (6) Pancytopenia Code(s): D61.818 - OTHER PANCYTOPENIA Status: Acute - Plan Holding Lenvatinib. Given elevated transaminases will go ahead and hold statin as well Progressive liver failure, U/S gallbladder with some stones and thickened wall but no CBD dilation Bilirubin and LFTs are down significantly today. ? passed a gallstone? MRCP today. No lovenox/heparin due to thrombocytopenia, on SCDs
[2019-12-03] MEDS: Lisinopril 10 MG TAB PO SCH (08:46)
[2019-12-03] MEDS: Aspirin Chewable 81 MG TAB PO SCH (08:47)
[2019-12-03 11:18] VITALS: BP 130/64; TEMP 97.9
--- NOTE | 2019-12-03 11:36 | MRI ---
EXAM: MRI of the abdomen without and with contrast COMPARISON: None HISTORY: Hepatoma with portal invasion. History of colon cancer TECHNIQUE: Multiplanar multi sequence MR images were taken of the abdomen without and with IV contras t. An MRCP was performed. FINDINGS: Liver: There is a small area of abnormal signal intensity in the anterior aspect of the left lobe of the liver. There is questionable low T2 signal in this lesion. After administration of contrast, this area does not demonstrate significant enhancement on the arterial phase images or on the delayed phase images. There is enhancement along the periphery of this lesion. The lesion measures 3.0 cm in size. Normal signal without dropout on out of phase images. Gallbladder: Contracted without obvious filling defects Common bile duct: Normal caliber without filling defects Adrenal glands: Unremarkable. Kidneys: No hydronephrosis or focal renal lesions. No abnormal areas of enhancement. Spleen: Enlarged without focal lesions.. Pancreas: Unremarkable. No abnormal enhancement. Retroperitoneum: No enlarged lymph nodes Bones: No marrow signal abnormality. IMPRESSION: 1. Nonspecific lesion in the anterior aspect of the liver. A follow-up CT or MRI in 3 months is recom mended to evaluate for stability. 2. Splenomegaly
[2019-12-03] MEDS ORDERED: Magnevist 469MG/ML 20 ML VIAL ONE (11:53)
--- NOTE | 2019-12-03 14:31 | PDOC.MOPN ---
Interval History: feels good, denies pain. - Vital Signs Vital Signs: Vital Signs (12 hours) Temp Pulse Resp BP Pulse Ox 12/03/19 11:16 97.9 F 86 12 130/64 97 12/03/19 08:50 98 12/03/19 07:50 97.8 F 75 16 151/73 H 98 12/03/19 04:45 97.9 F 75 18 136/66 98 Weight Admit Weight 172 lb 12.8 oz Weight 170 lb 3.2 oz - Physical Exam General: Alert, Oriented x3, No acute distress HEENT: Atraumatic, PERRLA, EOMI, Mucous membr. moist/pink Lungs: Clear to auscultation Cardiovascular: Regular rate Abdomen: Normal bowel sounds Neurological: Normal speech - Labs Result Diagrams: 12/01/19 04:30 12/03/19 04:26 Lab results: Laboratory Results - last 24 hr 12/03/19 04:26: PT 13.9, INR 1.1 12/03/19 04:26: Sodium 138, Potassium 4.0, Chloride 104, Carbon Dioxide 28, Anion Gap 10, BUN 19, Creatinine 0.83, Estimated GFR (MDRD) Greater than 90, Glucose 91, Calcium 9.0, Total Bilirubin 4.1 H, AST 123 H, ALT 114 H, Alkaline Phosphatase 491 H, Serum Total Protein 6.6, Albumin 2.9 L, Globulin 3.7 H, Albumin/Globulin Ratio 0.8 L Status: lab reviewed by me A/P - Problem (1) Elevated LFTs Current Visit: Yes Code(s): R79.89 - OTHER SPECIFIED ABNORMAL FINDINGS OF BLOOD CHEMISTRY Status: Acute (2) Hepatocellular carcinoma Current Visit: Yes Code(s): C22.0 - LIVER CELL CARCINOMA Status: Acute (3) Pancytopenia Current Visit: Yes Code(s): D61.818 - OTHER PANCYTOPENIA Status: Acute - Plan Plan: Bilirubin improved today, possible gallstone passed? Agrees to resume Lenvatinib tomorrow will follow-up as scheduled on 12/12 call office for any issues.
--- NOTE | 2019-12-03 14:39 | PRG ---
DATE OF SERVICE: 12/03/2019 SUBJECTIVE: Mr. Villeda states his abdominal pain is resolved. He is eating well. He has had no fever. Temperature is 97.9. He has been afebrile since admission. OBJECTIVE: VITAL SIGNS: Temperature 97.9, pulse 86, blood pressure 130/64. LUNGS: Clear. HEART: Regular with no clicks or murmurs. ABDOMEN: Soft and nontender. LABORATORY DATA: Today electrolytes normal. BUN is 4.1, down from 8. AST and ALT are 128 and 114, alkaline phosphatase is 491, albumin is 2.9, protein 6.9. I reviewed the CAT scan and ultrasound yesterday with Radiology. There are some small gallstones, but no signs of ductal dilatation. His CAT scan showed no evidence of portal venous thrombosis. We did an MRI today and that showed 3 cm lesion in the left lobe of the liver which enhances along the periphery consistent with diagnosis of hepatoma. There are no signs of portal vein thrombosis or invasion. The gallbladder is contracted without obvious filling defects. The common bile duct has no filling defects. ASSESSMENT: Hepatoma, on treatment. I think he can resume therapy. I do not think the new medicine he took 1 pill gave him the elevated liver function tests. If it were to happen again that one needs to be discontinued and different medicine will be considered. I will defer further treatment of his hepatoma to his oncologist in [facility] where he has been following with his care. He may need further assistance in the patient's care. Please do not hesitate to contact me. 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 We will sign off for now. Job ID: [id number]
--- NOTE | 2019-12-04 03:20 | DIS ---
DATE OF ADMISSION: 12/01/2019 DATE OF DISCHARGE: 12/03/2019 PRIMARY CARE PHYSICIAN: Dr. Tomlinson in [place]. REASON FOR ADMISSION: Abdominal pain and high blood pressure. DIAGNOSES AT DISCHARGE: 1. Abdominal pain, resolved. 2. Elevated bilirubin and transaminases, improving. 3. Hepatocellular carcinoma. 4. Hypertension with hypertensive urgency from pain, now resolved. 5. Hyperlipidemia. 6. Pancytopenia. PROCEDURES: 1. CT of the abdomen and pelvis with contrast showing evidence of cirrhosis with a regular hypodense lesion in the lateral segment of the left hepatic lobe, worrisome for neoplastic process. Gallbladder incompletely distended, but the gallbladder wall does appear mildly thickened, splenomegaly and tiny amount of free fluid in the abdomen. 2. Abdominal ultrasound showing splenomegaly and cholelithiasis with gallbladder wall thickening. 3. Abdominal MRI with and without contrast showing nonspecific lesion in the anterior aspect of the liver and splenomegaly, but no biliary abnormalities. CONSULTATIONS: 1. Heme-Oncology, Carolyn Schafer for Dr. Velazquez. 2. Gastroenterology, Dr. Garcia. SUMMARY OF HOSPITAL COURSE: This is a 74-year-old white male with past medical history of hypertension, hyperlipidemia, previous atrial fibrillation and heart valve replacement with recent hepatocellular carcinoma diagnosis in May of this year, seen in [facility] and had chemotherapy and then he was started on lenvatinib. He took the 1st dose and then later in the afternoon, he started getting severe abdominal pain and his blood pressure started spiking very high. He was seen in the emergency room with elevated blood pressures in 190s/80s. This improved with Nitro-Bid and hydralazine. His abdominal pain call slowly calmed down and then resolved over his hospital course. He was noted to have a significantly elevated AST, ALT, and total bilirubin more than it had been a few weeks ago. The patient was admitted to the hospital. He had Oncology consulted and then later Gastroenterology. Imaging was done as above. The patient's pain completely resolved and his bilirubin started to trend downward. Uncertain, if the elevated bilirubin was due to a passed biliary stone, no longer in the system or if it was related to his cancer. However, his MRI showed normal biliary system at the time of discharge and with his decreasing enzymes and lack of pain, he was cleared to discharge home. It was also thought that it is unlikely that a single dose of the lenvatinib would cause symptoms, so he was cleared to restart that tomorrow. DISCHARGE MANAGEMENT: Discharged home. ACTIVITY: As tolerated. DIET: Healthy heart diet. FOLLOWUP: Follow up with Dr. Velazquez on December 12 at 1 p.m. DISCHARGE MEDICATIONS: 1. Aspirin 81 mg daily. 2. Atorvastatin 10 mg daily. 3. Lisinopril 10 mg daily. 4. Zofran as needed. 5. Protonix 40 mg daily. 6. Tramadol as needed for pain. 7. Lenvatinib 4 mg p.o. daily starting tomorrow. Arranging the details of this discharge took 32 minutes. Job ID: [id number]
== END 2019-12-03 16:55 | disposition home or self-care (01) | DRG 435 ==
LOC: ERS 22:05 → INTOOBSV 11-30 00:39 → ERHOLD 11-30 00:39 → 2NO 11-30 15:27 → OBSVTOIN 12-01 15:59
PROVIDERS: ADMIT Family Medicine; ATTEND Family Medicine
DX: C22.0 Liver cell carcinoma (principal); K72.00 Acute and subacute hepatic failure without coma; D61.818 Other pancytopenia; I10 Essential (primary) hypertension; E78.5 Hyperlipidemia, unspecified; G89.29 Other chronic pain; I16.0 Hypertensive urgency; K80.20 Calculus of gallbladder without cholecystitis without obstruction; Z95.2 Presence of prosthetic heart valve; Z90.49 Acquired absence of other specified parts of digestive tract; Z92.21 Personal history of antineoplastic chemotherapy; Z79.82 Long term (current) use of aspirin; Z92.3 Personal history of irradiation
CPT/HCPCS: 36415; 71045; 74177; 74183; 80048; 80053; 80076; 82553; 83690; 83880; 84484; 85025; 85610; 93005; 93975; 96374; 96375; G0378; J0360; J2405; Q0162; Q9967

== ENCOUNTER 2019-12-11 17:41 | Observation (INO) | payer MEDICARE, BC, OTHER ==
[2019-12-11] MEDS ORDERED: Morphine 4 MG/ML VIAL ONE (18:01)
[2019-12-11] MEDS ORDERED: Ondansetron PF 4 MG/2 ML Vial ONE (18:05)
[2019-12-11 18:27] LABS: #Lymphocytes 0.3 thou/uL (1.20-3.40); #Monocytes 0.5 thou/uL (0.11-0.59); #Neutrophils 4.2 thou/uL (1.40-6.50); %Eosinophils 0.7 % (0.0-10.0); %Lymphocytes 6.5 % (21.0-51.0); %Neutrophils 83.9 % (42.0-75.0); Mean Corpuscular HGB CONC 32.7 g/dL (32.0-36.0); Mean Corpuscular Hemoglobin 31.6 pg (27.0-31.0); Mean Corpuscular Volume 96.6 fL (78.0-98.0); Mean Platelet Volume 10.6 fL (7.4-10.4); Platelet Count 54 thou/uL (130-400); RBC Distribution Width 15.9 % (11.5-14.5); Red Blood Cell (RBC) Count 5.37 mill/uL (4.70-6.10); White Blood Cell (WBC) Count 5.1 thou/uL (4.8-10.8)
[2019-12-11] MEDS ORDERED: HYDROmorphone 0.5 MG/0.5 ML SYRINGE ONE (18:34)
[2019-12-11 18:44] LABS: ALT (SGPT) 118 U/L (8-55); AST (SGOT) 150 U/L (5-34); Albumin 3.4 g/dL (3.4-4.8); Alkaline Phosphatase 534 U/L (40-110); Anion Gap 21 mmol/L (10-20); BUN (Urea Nitrogen) 24 mg/dL (8.4-25.7); Bilirubin, Total 5.3 mg/dL (0.2-1.2); Calc. Creatinine Clearance 0 mL/min (70-130); Calcium 9.5 mg/dL (7.8-10.44); Carbon Dioxide 16 mmol/L (23-31); Chloride 106 mmol/L (98-107); Estimated GFR-MDRD 79; Globulin 4.5 g/dL (2.4-3.5); Glucose 126 mg/dL (83-110); Lipase 96 U/L (8-78); Potassium 4.3 mmol/L (3.5-5.1); Protein, Total 7.9 g/dL (5.8-8.1); Sodium 139 mmol/L (136-145)
--- NOTE | 2019-12-11 20:04 | CT ---
CT Abdomen Pelvis W Con: 12/11/2019 6:04 PM CLINICAL INFORMATION: Worsening abdominal pain COMPARISON: 11/29/2019 TECHNIQUE: Multiple contiguous axial images were obtained and a CT of the abdomen and pelvis with IV contrast. C oronal and sagittal reformats were performed. FINDINGS: Lower Chest: Small hiatal hernia Abdomen: Liver: Stable vague 3.9 cm hypodense region in the left lobe of the liver. The liver is nodular in co ntour. Bile Ducts: Normal caliber. Gallbladder: No calcified gallstones. Normal caliber wall. Pancreas: within normal limits. Spleen: Enlarged measuring 14.9 cm in size Adrenals: within normal limits. Kidneys: within normal limits. Pelvis: Reproductive Organs: No pelvic masses. Ureters: within normal limits. Bladder: within normal limits. Peritoneum: No ascites or free air, no fluid collection. The previously seen presacral fluid is no lo nger present. Bowel: Normal caliber. An anastomotic staple line is seen in the rectum. Mesentery and Retroperitoneum: No enlarged mesenteric or retroperitoneal lymph nodes. Vessels: Atherosclerotic calcifications. Abdominal Wall: within normal limits. Bones: Degenerative changes in the spine. IMPRESSION: 1. Stable cirrhosis with sequelae of portal hypertension 2. Stable hypodense region in the left lower liver could represent a primary hepatic neoplasm or meta static disease.
[2019-12-11] MEDS ORDERED: Senokot S 8.6-50 MG TAB PO PRN (23:03)
[2019-12-11 23:25] VITALS: BMI 17.6
[2019-12-12] MEDS ORDERED: traMADol HCl 50 MG TAB PO PRN ×2 (01:20)
[2019-12-12] MEDS ORDERED: Morphine 2 MG/ML VIAL SLOW IVP PRN (01:21)
[2019-12-12] MEDS ORDERED: Ondansetron ODT 4 MG TAB PO PRN (01:22)
[2019-12-12] MEDS ORDERED: Sodium Chloride 0.9% 1,000 ML IV SCH (01:45)
--- NOTE | 2019-12-12 02:34 | HP ---
PRIMARY CARE PHYSICIAN: Dr. Tomlinson in [place]. LOCAL ONCOLOGIST: Dr. Velazquez. CHIEF COMPLAINT: Intractable abdominal pain. HISTORY OF PRESENT ILLNESS: Mr. Villeda is a 74-year-old white male with a past medical history pertinent for hypertension, hyperlipidemia, atrial fibrillation, prior to a heart valve replacement many years ago. He was diagnosed with colon cancer 10 years ago which was resected with an ostomy and then a reconnection was done after this. He has done fine with this up until May of this year when he had some upper abdominal pain. His primary care doctor diagnosed him with a liver mass and so he was sent to [facility]. They did a biopsy and they started treating him with chemotherapy and he sees Dr. Velazquez here for ongoing treatments. He was admitted earlier this month for similar complaints. At that time, he was also extremely hypertensive, but he was seen by Dr. Velazquez, his HIGH SCHOOL HISTORY TEACHER and as well as Dr. Garcia. His stomach pain went away and he was sent home on the of this month. He is supposedly on lenvatinib, but it is unclear if he has continued this. He reports that he takes tramadol at home, but that was not able to relieve his pain today, so he came back to the emergency room. His blood pressure was elevated in the emergency room, initially it was 157/114 and by the time he was sent to the Oncology unit, it was down to 145/77. EMS picked him up today, gave him some fentanyl, which he reports did not help. They gave him some Dilaudid 1 mg in the ER, some Zofran, some morphine and 500 mL of sodium chloride and by the time, the hospitalist HIGH SCHOOL HISTORY TEACHER saw him, he was feeling a little bit better. Of note, his LFTs today were elevated, but not more than they were on the day of discharge, but not the highest they have been as well as his alkaline phosphatase which was 534 today; when he was discharged, it was 491. His total bilirubin today was 5.3, it was 4.1 when he was discharged; it maybe have gotten up to 8 during the last admission. We are going to place him on the oncology unit. The ER has put in consult for Oncology and GI and we will add some pain management and would appreciate their input. REVIEW OF SYSTEMS: The patient denies any fever or chills. He denied any chest pain. He said he has some mild shortness of breath, but that is normal for him. He denies any cough or wheezing. He does report some upper GI discomfort. Describes it as a throbbing. He has had some nausea, but he denies that he has vomited today. He said he is having regular bowel movements. He denies any dysuria. All other systems are reviewed and are negative unless mentioned above in the HPI. PAST MEDICAL HISTORY: Hypertension, hyperlipidemia, colon cancer, liver metastases, atrial fibrillation resolved with an ablation. PAST SURGICAL HISTORY: Heart valve replacement, atrial ablation, appendectomy, colostomy with later revision, liver biopsy. SOCIAL HISTORY: The patient used to drink on a daily basis. He quit in May of this year. No tobacco or drug use. He is . He is a full code and is his medical decision maker. FAMILY HISTORY: Cancer and dad had some atherosclerosis. ALLERGIES: NONE. CURRENT MEDICATIONS: 1. Atorvastatin 10 mg p.o. daily. 2. Lenvima 4 mg p.o. daily. 3. Lisinopril 10 mg p.o. daily. 4. Ondansetron 4 mg p.o. q.4 hours p.r.n. 5. Prilosec 40 mg p.o. daily. 6. Tramadol 50 mg p.o. q.6 p.r.n. PHYSICAL EXAMINATION: VITAL SIGNS: Blood pressure 142/87, pulse is 104, respiratory rate is 15, pO2 sats are 100% on room air. CONSTITUTIONAL: The patient appears ill with a little mild jaundice tented to his skin, just ill-appearing. HEENT: Head is atraumatic and normocephalic. Eyes, pupils equally round and reactive to light. He has some mild icterus. ENT, mouth exam is normal, but his mucous membranes are dry. NECK: Normal range of motion. Trachea is midline. RESPIRATORY: Chest breath sounds are clear. Chest expansion is equal. CARDIOVASCULAR: He is a little tachycardic, holosystolic murmur at the left sternal border. ABDOMEN: Tenderness in the right upper quadrant. Mild guarding. He is not distended. No rebound. BACK: Normal on inspection. Normal range of motion. MUSCULOSKELETAL: Upper extremity inspection is normal. He has a tremor to bilateral hands. Lower extremity, normal range of motion. Motor strength is normal. Pedal pulses are normal. NEUROLOGIC: Bilateral hand tremor. He is alert and oriented to person, place, and time. Speech is normal. SKIN: Warm, dry. It is a little yellow tinged. PSYCHIATRIC: He is oriented to person, place, and time. He has a normal affect. DIAGNOSTIC DATA: EKG, tachycardia, heart rate 101, left axis deviation, left ventricular hypertrophy. QTc is 469. CT of the abdomen and pelvis shows no acute findings. Stable liver lesion. No evidence of acute aida. ASSESSMENT AND PLAN: 1. Acute on chronic abdominal pain, most likely from the liver metastasis. We have added some pain medications for him today. We have asked Dr. Velazquez to consult. We have also asked GI to consult to see if they have any further recommendations. We will add some gentle hydration at 75 mL per hour and normal saline. 2. History of hypertension. We will restart his home medications. Add p.r.n. medications as needed for coverage. 3. Gastrointestinal prophylaxis. We will continue the patient's Protonix. 4. History of hyperlipidemia. Considering his liver enzymes are slightly elevated and his bilirubin is up, we will hold that for tonight. 5. Deep vein thrombosis prophylaxis. We will put the patient on some SCDs. His platelets are low, so we will hold any heparin or Lovenox. 6. The patient is a full code. Case was discussed with Dr. Echavarria who agrees with plan. Hospital course dependent on clinical findings. Job ID: [id number]
[2019-12-12 04:12] LABS: #Lymphocytes 0.4 thou/uL (1.20-3.40); #Monocytes 0.4 thou/uL (0.11-0.59); %Eosinophils 1.1 % (0.0-10.0); %Lymphocytes 14.1 % (21.0-51.0); %Monocytes 14.8 % (0.0-10.0); %Neutrophils 70.1 % (42.0-75.0); Hemoglobin 14.4 g/dL (14.0-18.0); Mean Corpuscular HGB CONC 32.8 g/dL (32.0-36.0); Mean Corpuscular Hemoglobin 31.3 pg (27.0-31.0); Mean Corpuscular Volume 95.5 fL (78.0-98.0); Mean Platelet Volume 10.7 fL (7.4-10.4); Platelet Count 39 thou/uL (130-400); RBC Distribution Width 15.8 % (11.5-14.5); Red Blood Cell (RBC) Count 4.59 mill/uL (4.70-6.10); White Blood Cell (WBC) Count 2.8 thou/uL (4.8-10.8)
[2019-12-12 04:20] LABS: ALT (SGPT) 105 U/L (8-55); AST (SGOT) 121 U/L (5-34); Alkaline Phosphatase 433 U/L (40-110); Anion Gap 10 mmol/L (10-20); BUN (Urea Nitrogen) 23 mg/dL (8.4-25.7); Bilirubin, Total 4.8 mg/dL (0.2-1.2); Calc. Creatinine Clearance 68 mL/min (70-130); Calcium 9.2 mg/dL (7.8-10.44); Carbon Dioxide 26 mmol/L (23-31); Chloride 107 mmol/L (98-107); Estimated GFR-MDRD Greater than 90; Globulin 3.7 g/dL (2.4-3.5); Glucose 115 mg/dL (83-110); Potassium 4.9 mmol/L (3.5-5.1); Protein, Total 6.7 g/dL (5.8-8.1); Sodium 138 mmol/L (136-145)
[2019-12-12] MEDS ORDERED: Lisinopril 10 MG TAB PO SCH (09:00)
[2019-12-12] MEDS ORDERED: Famotidine 20 MG TAB PO SCH (09:00)
--- NOTE | 2019-12-12 09:05 | PDOC.HOSPP ---
- Subjective Encounter Date: 12/12/19 Encounter Time: 09:03 Subjective: Payal Villeda was seen today in follow-up of abdominal pain. He says the pain is much better today. He denies nausea or vomiting. - Objective Vital Signs & Weight: Vital Signs (12 hours) Temp Pulse Resp BP Pulse Ox 12/12/19 07:50 97.6 F 89 20 111/79 98 12/11/19 22:50 97.6 F 97 20 173/81 H 99 Weight Weight 116 lb 3.2 oz I&O: 12/11/19 12/12/19 12/13/19 06:59 06:59 06:59 Intake Total 300 Balance 300 Result Diagrams: 12/12/19 03:17 12/12/19 03:17 Hospitalist ROS - Medication Medications: Active Medications Generic Name Dose Route Start Last Admin Trade Name Freq PRN Reason Stop Dose Admin Sodium Chloride 1,000 mls @ 75 mls/hr 12/12/19 01:45 12/12/19 02:25 Normal Saline 0.9% IV 1,000 mls .[id number] EULALIA Administration - Exam Eye: PERRL, anicteric sclera Heart: RRR, II/IV Respiratory: CTAB, no wheezes, no rales, no ronchi, normal chest expansion, no tachypnea Gastrointestinal: soft, non-tender, non-distended, normal bowel sounds Extremities: no cyanosis, no edema Hosp A/P (1) Abdominal pain Code(s): R10.9 - UNSPECIFIED ABDOMINAL PAIN Status: Acute (2) Hepatocellular carcinoma Code(s): C22.0 - LIVER CELL CARCINOMA Status: Acute (3) Hypertension Code(s): I10 - ESSENTIAL (PRIMARY) HYPERTENSION Status: Chronic Qualifiers: Hypertension type: essential hypertension Qualified Code(s): I10 - Essential (primary) hypertension (4) Thrombocytopenia Code(s): D69.6 - THROMBOCYTOPENIA, UNSPECIFIED Status: Chronic - Plan * Abdominal pain- likely related to the liver cancer- continue Morphine, and can consider transition to MS-contin at discharge * HTN- blood pressure is stable- continue Lisinopril * Thrombocytopenia- this appears stable- no Lovenox * Await GI and Oncology evaluations
--- NOTE | 2019-12-12 13:27 | CON ---
DATE OF CONSULTATION: 12/12/2019 REQUESTING PHYSICIAN: Elroy Musa MD REASON FOR CONSULTATION: Abdominal pain. HISTORY OF PRESENT ILLNESS: Reynaldo Villeda is a 74-year-old man who was recently discharged from the hospital 1 week ago, seen at that time by my colleague, Dr. Garcia. He has a history significant for rectal cancer status post resection with ostomy and subsequent reversal about 10 years ago. In May of this year, he was having upper abdominal pain, underwent some workup in [place], and was found to have hepatocellular carcinoma, evidently confirmed with liver mass biopsy. He sees Dr. Velazquez here for ongoing chemotherapy treatments in conjunction with physicians at [facility]. He has had poor tolerance to several therapies. He was admitted last week with abdominal pain, which started in the right lower quadrant, radiated up to the left upper quadrant, not associated with any significant change in bowel habits, nausea, or vomiting. His pain lasted for about a day or so and was quite severe before essentially completely resolving. He had an MRI of the abdomen, which showed no evidence of portal vein thrombosis and no other acute processes in the abdomen, just his known left hepatic lesion. There was some thought that perhaps it was a biliary etiology, but the common bile duct was normal. There was no evidence really of any gallstones. LFTs were elevated, but stable. He says he did well for about a week, but then yesterday, he again started having severe pain in the right lower quadrant, again radiating up into the left upper quadrant. This lasted several hours and prompted admission overnight. However, he says that this morning and so far this afternoon he has again been completely pain free. He is not having any nausea or any residual pain. He did well with breakfast and is currently eating lunch. He is asking to be discharged from the hospital if possible. REVIEW OF SYSTEMS: Full review of systems including constitutional; head, eyes, ears, nose, and throat; GI; ; cardiovascular; respiratory; musculoskeletal; neurologic systems is negative except as noted in the HPI. PAST MEDICAL HISTORY: 1. Hepatocellular carcinoma. 2. 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 3. History of rectal adenocarcinoma in the past with radiation, chemotherapy, resection, then ostomy takedown. 4. Hypertension. 5. Atrial fibrillation. 6. Cirrhosis, diagnosed from this hepatoma was diagnosed. 7. Appendectomy. 8. Aortic valve replacement. ALLERGIES: NO KNOWN DRUG ALLERGIES. OUTPATIENT MEDICATIONS: 1. Atorvastatin. 2. Lenvima 4 mg daily. 3. Lisinopril. 4. Ondansetron p.r.n. 5. Prilosec 40 mg daily. 6. Tramadol 50 mg p.o. q.6 h. p.r.n. FAMILY HISTORY: Leukemia and breast cancer. SOCIAL HISTORY: The patient lives with his spouse. He has a history of heavy alcohol use before this diagnosis, which he stopped in May of this year. He does chew tobacco. PHYSICAL EXAMINATION: VITAL SIGNS: Temperature 97.8, blood pressure 126/82, pulse 82, and 98% oxygen saturation on room air. GENERAL: A 74-year-old man, lying in bed comfortably, appearing chronically ill, but nontoxic, in no acute distress. SKIN: No jaundice. No rash visible or palpable. EYES: No scleral icterus. Extraocular movements intact. ENT: Mucous membranes moist. No oral lesions. LYMPHATICS: No submandibular or supraclavicular lymphadenopathy. THYROID: Nontender to palpation. HEART: Regular rate and rhythm. LUNGS: Clear to auscultation bilaterally. ABDOMEN: Bowel sounds are present. The abdomen is flat. There is tenderness to palpation in the right lower quadrant, but no guarding or rebound tenderness. EXTREMITIES: No peripheral edema. VESSELS: Radial pulses 2+ bilaterally. NEUROLOGIC: Cranial nerves 2 through 12 intact bilaterally. No focal deficits. LABORATORY STUDIES: Sodium 138, potassium 4.9, BUN 23, creatinine 0.73, and glucose 115. Total bilirubin is 4.8, note that this is stable from his last admission; alkaline phosphatase 433; AST 121; and ALT 105, all down from prior admission slightly. Albumin 3.0 and lipase only 96. INR is 1.1. WBC 2.8, hemoglobin 14.4, and platelets 39. IMAGING STUDIES: CT of the abdomen and pelvis from admission yesterday demonstrates stable cirrhosis with sequela of portal hypertension and stable hypodense lesion in the left liver lobe, measuring 3.9 cm. The bile ducts and gallbladder appear normal. Pancreas appears normal. There is some splenomegaly to 14.9 cm. There is no ascites or free air or fluid. Bowel appears normal with an anastomotic staple line in the rectum. No lymphadenopathy. ASSESSMENT AND PLAN: 1. Right lower quadrant pain, radiating to the left upper quadrant, recurrent, now resolved. 2. Elevated liver function tests, stable since prior admission, in the context of underlying cirrhosis, undergoing chemotherapy for hepatocellular carcinoma. 3. Hepatocellular carcinoma. There had been some question as to whether this might represent biliary etiology given the elevation in liver function tests; however, multiple imaging studies had not demonstrated any biliary dilation or even cholelithiasis or gallbladder thickening. In addition, the pain originates pretty low down on the right side, so I find this doubtful. Consider possible bowel irritability and intestinal spasm, perhaps a side effect of some of his chemotherapy. Regardless, this seems to be resolved again. I do not see that there would be any utility to aggressive further investigation at this time. The patient himself is desiring to go home today, and I think that is reasonable. He will continue to follow up with his oncologist and primary play leader in [place], but he is also welcome to follow up in our clinic with Dr. Garcia, who saw him last week, if he desires. GI will sign off. Please call anytime with questions or concerns. Job ID: [id number]
[2019-12-12 15:01] LABS: SARS-CoV-2 MS2 Positive; SARS-CoV-2 N Gene Negative; SARS-CoV-2 S Gene Negative; SARS-CoV-2 by NAA Not Detected (NotDetected); SARS-CoV-2 orf1ab Negative
--- NOTE | 2019-12-12 15:34 | CON ---
DATE OF CONSULTATION: REASON FOR CONSULTATION: Hepatocellular carcinoma. HISTORY OF PRESENT ILLNESS: A 74-year-old male with hepatocellular carcinoma diagnosed in May 2019, status post radiation at [facility] and three cycles of Avastin plus Tecentriq with stable to mild improvement in disease, currently on Lenvima for the past 2 weeks, presenting to the hospital with severe abdominal pain. The patient presented to the hospital last week for the same and when his pain resolved, he was discharged home. The patient states that he has done well for the last week until Friday. He went outside to ride his mule and suddenly began having extreme abdominal pain, bringing him to the ER. He states he did not have any trauma and the pain is similar to before. He had taken two tramadol before he came to the ER and says that did not relieve his pain. He received morphine in the ER, which resolved his pain and he states his pain has not recurred. He had a CT abdomen and pelvis that showed a stable large liver tumor and cirrhosis. Labs reveal transaminitis and hyperbilirubinemia, which is reasonably stable for him. The patient denied any fevers, nausea, vomiting, but states he did have one episode of diarrhea in the hospital. Today, he feels well and is requesting to go home. REVIEW OF SYSTEMS: Negative except as per HPI. PAST MEDICAL HISTORY: Rectal cancer, liver cancer, hypertension, high cholesterol, cirrhosis, atrial fibrillation. PAST SURGICAL HISTORY: Heart valve replacement, atrial ablation, appendectomy, colostomy and revision. SOCIAL HISTORY: Past alcohol. No smoking. FAMILY HISTORY: Cancer in the family. ALLERGIES: NONE. CURRENT MEDICATIONS: Reviewed. PHYSICAL EXAMINATION: VITAL SIGNS: Temperature 97.8, pulse 82, respirations 20, saturating 98% on room air, blood pressure 126/62. GENERAL APPEARANCE: The patient is lying down in bed, in no acute distress. HEENT: Normocephalic and atraumatic with mild scleral icterus. NECK: Normal range of motion. RESPIRATIONS: Clear to auscultation bilaterally. CARDIOVASCULAR: S1, S2 with a pansystolic murmur at the upper sternal borders. ABDOMEN: Mild tenderness to palpation in the right upper quadrant with mild guarding. EXTREMITIES: Moves all extremities. NEUROLOGIC: Cranial nerves 2 through 12 are grossly intact with a small bilateral hand tremor. PSYCHIATRIC: Awake, alert, and oriented x3. LABORATORY DATA: White blood cells 2.8, hemoglobin 14.4, platelets 39. Sodium 138, potassium 4.9, BUN 22, creatinine 0.73, total bilirubin 4.8, AST 121, ALT 105, alkaline phosphatase 433. ASSESSMENT AND PLAN: A 74-year-old male with hepatocellular carcinoma , currently on Lenvima, presented to the hospital with severe abdominal pain. The patient was treated with morphine and pain has since resolved. LFTs are stable and CT is stable. The patient is okay to be discharged home with outpatient followup with me. For improved pain control, I advised him to stop taking his tramadol and we will send him Michelle and MS Albertina. We will follow up with him tomorrow in clinic. Thank you for this consult. Job ID: [id number] [facility]Tom
[2019-12-12 15:38] VITALS: BP 133/67; TEMP 98
--- NOTE | 2019-12-12 18:09 | DIS ---
DATE OF ADMISSION: 12/11/2019 DATE OF DISCHARGE: 12/12/2019 DISCHARGE DISPOSITION: Home. DISCHARGE DIAGNOSES: 1. Severe abdominal pain. 2. Hepatocellular carcinoma. 3. Hypertension. 4. Hyperlipidemia. 5. Atrial fibrillation. DISCHARGE MEDICATIONS: Include; 1. Tramadol 50 mg p.r.n. 2. Pantoprazole 40 mg daily. 3. Zofran 4 mg q.4 as needed. 4. Lisinopril 10 mg daily. 5. Lenvima 4 mg daily. 6. Atorvastatin 10 mg daily. IMAGING DONE DURING THE HOSPITAL STAY: The patient had a CT scan of the abdomen and pelvis, which demonstrated stable cirrhosis with evidence of portal hypertension. There was also a stable hypodense region within the left lobe of the liver, representing a primary hepatic neoplasm or metastatic disease. CODE STATUS: Full code. ALLERGIES: NO KNOWN DRUG ALLERGIES. HOSPITAL COURSE: Mr. Villeda is a pleasant 74-year-old gentleman, who was admitted to the hospital with complaints of severe abdominal pain. He was evaluated in the ER and had a CT scan, which showed a stable hepatic mass. The patient has known liver cancer and believes that the pain was related to the liver cancer and possibly the new chemotherapeutic medication he has been taking. He admits that he was afraid of becoming addicted to pain medications, and therefore was not taking the medications that were prescribed to him at home for pain. When he was admitted, he was placed on morphine and got very good results with that. The following day, his appetite improved, his pain was completely relieved, and he was actually asking about going home. The patient is therefore being discharged home without any further evaluation and to have close outpatient followup with his primary care physician and also with Oncology. Job ID: [id number]
== END 2019-12-12 17:05 | disposition home or self-care (01) ==
LOC: ERS 17:41 → ONC 20:56
PROVIDERS: ADMIT Internal Medicine; ATTEND Internal Medicine
DX: R10.31 Right lower quadrant pain (principal); R10.12 Left upper quadrant pain; C22.0 Liver cell carcinoma; I10 Essential (primary) hypertension; E78.5 Hyperlipidemia, unspecified; I48.91 Unspecified atrial fibrillation; K74.60 Unspecified cirrhosis of liver; K76.6 Portal hypertension; D69.6 Thrombocytopenia, unspecified; F17.220 Nicotine dependence, chewing tobacco, uncomplicated; E78.00 Pure hypercholesterolemia, unspecified; K44.9 Diaphragmatic hernia without obstruction or gangrene; Z79.899 Other long term (current) drug therapy; Z95.2 Presence of prosthetic heart valve; Z20.828 Contact with and (suspected) exposure to other viral communicable diseases
CPT/HCPCS: 74177; 80053 ×2; 83690; 84484; 85025 ×2; 93005; 96361; 96374; 96375; 97116; 97139; 99285; U0003; 36415; 87635; G0378; J1170; J2270; J2405; Q9967

== ENCOUNTER 2020-01-03 16:48 | Inpatient (IN) | payer MEDICARE, BC ==
[~2020-01-03 16:48] MED LIST changes: +Iopamidol 370 76% 50 ML VIAL FS ONE
[2020-01-03 17:34] LABS: INR-International Normal Ratio 1.3; PTT 36.3 sec (22.9-36.1); Prothrombin Time 16.3 sec (12.0-14.7)
[2020-01-03 17:36] LABS: #Lymphocytes 0.5 thou/uL (1.20-3.40); #Monocytes 0.3 thou/uL (0.11-0.59); #Neutrophils 1.4 thou/uL (1.40-6.50); %Eosinophils 2.1 % (0.0-10.0); %Lymphocytes 23.8 % (21.0-51.0); %Monocytes 11.5 % (0.0-10.0); %Neutrophils 62.6 % (42.0-75.0); Hemoglobin 16.2 g/dL (14.0-18.0); Mean Corpuscular HGB CONC 31.7 g/dL (32.0-36.0); Mean Corpuscular Volume 97.9 fL (78.0-98.0); Mean Platelet Volume 13.5 fL (7.4-10.4); Platelet Count 33 thou/uL (130-400); RBC Distribution Width 18.8 % (11.5-14.5); Red Blood Cell (RBC) Count 5.21 mill/uL (4.70-6.10); White Blood Cell (WBC) Count 2.2 thou/uL (4.8-10.8)
[2020-01-03 17:53] LABS: Large Platelets SLIGHT; MDiff Complete? YES; Platelet Morphology Comment Appears Decreased; RBC Morphology Normal
[2020-01-03 19:03] LABS: ALT (SGPT) 96 U/L (8-55); AST (SGOT) 180 U/L (5-34); Albumin 2.5 g/dL (3.4-4.8); Alkaline Phosphatase 461 U/L (40-110); Anion Gap 19 mmol/L (10-20); BUN (Urea Nitrogen) 19 mg/dL (8.4-25.7); Calc. Creatinine Clearance 0 mL/min (70-130); Calcium 8.5 mg/dL (7.8-10.44); Carbon Dioxide 16 mmol/L (23-31); Chloride 109 mmol/L (98-107); Estimated GFR-MDRD Greater than 90; Globulin 4.2 g/dL (2.4-3.5); Glucose 87 mg/dL (83-110); Potassium 5.6 mmol/L (3.5-5.1); Protein, Total 6.7 g/dL (5.8-8.1); Sodium 138 mmol/L (136-145)
[2020-01-03 19:58] LABS: Bacteria/HPF 4+ HPF (None Seen); Bilirubin 3+ (Negative); Blood, Urine 1+ (Negative); Clarity Turbid (Clear); Glucose, Urine (Dipstick) Normal (Negative); Ketone, Urine Trace mg/dL (Negative); Leukocyte 75 Leu/uL (Negative); Nitrite Negative (Negative); Protein, Urine (Dipstick) 20 mg/dL (Neg-Trace); RBC/HPF 0-3 HPF (0-3); Specific Gravity, Urine 1.022 (1.002-1.036); Squamous Epithelial 0-3 HPF (0-3); Urobilinogen Greater than 12 mg/dL (Less than 2); WBC/HPF 21-50 HPF (0-3); pH, Urine 5.5 (5.0-9.0)
[2020-01-03 20:20] LABS: Lactic Acid 3.2 mmol/L (0.5-2.2)
--- NOTE | 2020-01-03 20:45 | CT ---
EXAM: CT of the chest with contrast CT of the abdomen and pelvis with contrast HISTORY: Elevated bilirubin. History of colon cancer and liver cancer COMPARISON: 12/11/2019 TECHNIQUE: 1. Multiple contiguous axial images were obtained in a CT the chest with contrast. Coronal and sagitt al reformats were performed. 2. Multiple contiguous axial images were obtained and a CT of the abdomen and pelvis with contrast. O ral contrast was administered. Coronal and sagittal reformats were performed. FINDINGS: CT CHEST: HEART: Normal in size without focal cardiac abnormality MEDIASTINUM: No hilar or mediastinal lymphadenopathy. LUNGS: 1.2 cm peripheral nodule in the left lower lobe. PLEURAL SPACE: No pneumothorax or pleural effusion. CHEST WALL SOFT TISSUES: Unremarkable CT ABDOMEN/PELVIS: ABDOMEN: LIVER: Nodular contour consistent with cirrhosis. Small hypodense region in the left lower liver is m ore difficult to see on today's examination. BILE DUCTS: Normal caliber. GALLBLADDER: No calcified gallstones. Normal caliber wall. PANCREAS: within normal limits. SPLEEN: Enlarged ADRENALS: within normal limits. KIDNEYS: within normal limits. PELVIS: REPRODUCTIVE ORGANS: No pelvic masses. URETERS: within normal limits. BLADDER: within normal limits. PERITONEUM: There is a small amount of ascites. BOWEL: Normal caliber. MESENTERY AND RETROPERITONEUM: No enlarged mesenteric or retroperitoneal lymph nodes. VESSELS: Atherosclerotic calcifications. ABDOMINAL WALL: within normal limits. OSSEOUS STRUCTURES: Degenerative changes in the spine. IMPRESSION: 1. Cirrhotic liver with sequelae of portal hypertension. (Splenomegaly and ascites) 2. Nonspecific hypodense region in the left lobe of the liver is smaller and less noticeable than on the prior examination. 3. The left lower lobe pulmonary nodule is new compared to the prior examination and may represent an area of round atelectasis.
[2020-01-03] MEDS ORDERED: Dextrose 50% Abboject 50 ML SYRINGE ONE (20:47)
[2020-01-03] MEDS ORDERED: cefTRIAXone\\ROCEPHIN 2 GM VIAL ONE (20:47)
[2020-01-03] MEDS ORDERED: Insulin Regular 300 UNITS/3 ML VIAL ONE (20:47)
[2020-01-03] MEDS ORDERED: Sodium Bicarb 50 MEQ/50 ML VIAL ONE (20:47)
[2020-01-03] MEDS ORDERED: Calcium Chloride 1 GM/10 ML Abboject SYRINGE ONE (20:47)
[2020-01-03] MEDS ORDERED: Ondansetron PF 4 MG/2 ML Vial ONE (21:01)
[2020-01-03] MEDS ORDERED: Ondansetron PF 4 MG/2 ML Vial IVP PRN (22:12)
[2020-01-03] MEDS ORDERED: Acetaminophen 325 MG TAB PO PRN ×2 (22:12→23:19)
[2020-01-03] MEDS ORDERED: Ondansetron ODT 4 MG TAB SL PRN (22:12)
[2020-01-03] MEDS ORDERED: Sodium Chloride 0.9% 1,000 ML IV SCH (22:12)
[2020-01-03 22:58] VITALS: BMI 25.0
[2020-01-03] MEDS ORDERED: Calcium Carbonate 500 MG ChewTAB PO PRN (23:19)
--- NOTE | 2020-01-03 23:26 | PDOC.HHP ---
Hospitalist HPI - History of Present Illness sent by oncologist due to high bili History of Present Illness: Case of an 74y/o male with pmhx of liver ca with cirrhosis, htn, hld who comes to hospital sent by oncologist due to increasing levels of bili on f/u labs. patient refers he has been on his usual state of health until today when he saw his oncologist for f/u and noted that his bili was high and sent him here for evaluation. patient denies any fever chills dysuria or diarrhea. does refers vomiting episodes once a 2week. and has noticed some jaundice for the last couple of weeks Hospitalist ROS - Review of Systems All other systems reviewed; all pertinent +/- noted in HPI/Subj Hospitalist History - Past Surgical History Past Surgical History: reports: Appendectomy Other Surgical History: valve repair - Family History Family History: reports: no pertinent history - Social History Smoking Status: Never smoker Alcohol: reports: None Drugs: reports: none - Exam General Appearance: NAD, awake alert General - other findings: jaundice Eye: PERRL, anicteric sclera ENT: normocephalic atraumatic, no oropharyngeal lesions Neck: supple, symmetric, no JVD Heart: RRR, no murmur, no gallops Respiratory: CTAB, no wheezes, no rales Gastrointestinal: soft, non-tender, non-distended, normal bowel sounds Extremities: no cyanosis, no clubbing, no edema Skin: normal turgor, no lesions, no rashes Neurological: cranial nerve grossly intact, normal sensation to touch, no weakness Musculoskeletal: normal tone, normal strength, no muscle wasting Psychiatric: normal affect, normal behavior, A&O x 3 Hospitalist Results - Labs Result Diagrams: 01/03/20 17:13 01/03/20 18:33 Lab results: WBC 2.2 thou/uL (4.8-10.8) L 01/03/20 17:13 Hgb 16.2 g/dL (14.0-18.0) 01/03/20 17:13 Hct 51.0 % (42.0-52.0) 01/03/20 17:13 MCV 97.9 fL (78.0-98.0) 01/03/20 17:13 Plt Count 33 thou/uL (130-400) L 01/03/20 17:13 Neutrophils % 62.6 % (42.0-75.0) 01/03/20 17:13 Sodium 138 mmol/L (136-145) 01/03/20 18:33 Potassium 5.6 mmol/L (3.5-5.1) H 01/03/20 18:33 Chloride 109 mmol/L (98-107) H 01/03/20 18:33 Carbon Dioxide 16 mmol/L (23-31) L 01/03/20 18:33 BUN 19 mg/dL (8.4-25.7) 01/03/20 18:33 Creatinine 0.70 mg/dL (0.7-1.3) 01/03/20 18:33 Glucose 87 mg/dL (83-110) 01/03/20 18:33 Lactic Acid 3.2 mmol/L (0.5-2.2) H 01/03/20 19:56 Calcium 8.5 mg/dL (7.8-10.44) 01/03/20 18:33 Total Bilirubin 12.0 mg/dL (0.2-1.2) H 01/03/20 18:33 AST 180 U/L (5-34) H 01/03/20 18:33 ALT 96 U/L (8-55) H 01/03/20 18:33 Alkaline Phosphatase 461 U/L (40-110) H 01/03/20 18:33 Serum Total Protein 6.7 g/dL (5.8-8.1) 01/03/20 18:33 Albumin 2.5 g/dL (3.4-4.8) L 01/03/20 18:33 Urine Ketones Trace mg/dL (Negative) A 01/03/20 19:18 Urine Blood 1+ (Negative) A 01/03/20 19:18 Urine Nitrite Negative (Negative) 01/03/20 19:18 Ur Leukocyte Esterase 75 Quita/uL (Negative) A 01/03/20 19:18 Urine RBC 0-3 HPF (0-3) 01/03/20 19:18 Urine WBC 21-50 HPF (0-3) A 01/03/20 19:18 Ur Squamous Epith Cells 0-3 HPF (0-3) 01/03/20 19:18 Urine Bacteria 4+ HPF (None Seen) A 01/03/20 19:18 Hospitalist H&P A/P - Problem (1) Liver failure Status: Acute (2) Sepsis Code(s): A41.9 - SEPSIS, UNSPECIFIED ORGANISM Status: Acute (3) UTI (urinary tract infection) Status: Acute (4) Neutropenia Code(s): D70.9 - NEUTROPENIA, UNSPECIFIED Status: Acute (5) Hepatocellular carcinoma Code(s): C22.0 - LIVER CELL CARCINOMA Status: Acute (6) Hyperlipidemia Code(s): E78.5 - HYPERLIPIDEMIA, UNSPECIFIED Status: Chronic (7) Hypertension Code(s): I10 - ESSENTIAL (PRIMARY) HYPERTENSION Status: Chronic Qualifiers: Hypertension type: essential hypertension Qualified Code(s): I10 - Essential (primary) hypertension (8) Thrombocytopenia Code(s): D69.6 - THROMBOCYTOPENIA, UNSPECIFIED Status: Chronic (9) Hyperkalemia Code(s): E87.5 - HYPERKALEMIA Status: Acute - Plan Plan: 74y/o male with the stated pmhx who presents with sepsis uti and liver failure uti / sepsis - u/a consistent with uti - sepsis bundles started - f/u blood and urine culture - elevated LA could be secondary to Cancer dx - started on rocephin liver failure / liver CA - ct consistent with cirrhosis and liver CA - normal caliber ducts, no obstruction noted on ct - oncologist consulted neutropenia / thrombocytopenia - likely secondary to CA hyperkalemia - no ekg changes - mild - will give ivfs - f/u bmp in am htn - continue home meds - prn hydralazine
[2020-01-04] MEDS ORDERED: Promethazine HCl 12.5 MG in Sodium Chloride 0.9% 50 ML IVPB PRN (00:04)
[2020-01-04] MEDS: Sodium Chloride 0.9% 1,000 ML IV SCH ×4 (00:06→23:32)
[2020-01-04] MEDS: hydrALAZINE 20 MG/ML VIAL SLOW IVP PRN (00:12)
[2020-01-04] MEDS: HYDROcodone/Acetaminophen 5/325 mg Tablet PO PRN (00:13)
[2020-01-04] MEDS ORDERED: Sodium Chloride 0.9% 2,000 ML IV SCH (01:00)
[2020-01-04] MEDS: Morphine 2 MG/ML VIAL SLOW IVP PRN (02:37)
[2020-01-04 05:31] LABS: ALT (SGPT) 92 U/L (8-55); AST (SGOT) 162 U/L (5-34); Albumin 2.3 g/dL (3.4-4.8); Alkaline Phosphatase 422 U/L (40-110); Anion Gap 13 mmol/L (10-20); BUN (Urea Nitrogen) 15 mg/dL (8.4-25.7); Bilirubin, Total 13.6 mg/dL (0.2-1.2); Calc. Creatinine Clearance 123 mL/min (70-130); Calcium 8.4 mg/dL (7.8-10.44); Carbon Dioxide 19 mmol/L (23-31); Chloride 112 mmol/L (98-107); Estimated GFR-MDRD Greater than 90; Globulin 3.5 g/dL (2.4-3.5); Glucose 87 mg/dL (83-110); Potassium 4.1 mmol/L (3.5-5.1); Protein, Total 5.8 g/dL (5.8-8.1); Sodium 140 mmol/L (136-145)
[2020-01-04 05:54] LABS: Band 6 % (5-11); Lymphocytes 8 % (21-51); MDiff Complete? YES; Mean Corpuscular HGB CONC 31.2 g/dL (32.0-36.0); Mean Corpuscular Hemoglobin 30.8 pg (27.0-31.0); Mean Corpuscular Volume 98.9 fL (78.0-98.0); Mean Platelet Volume 13.4 fL (7.4-10.4); Monocytes 6 % (0-10); Neutrophil 80 % (42-75); Platelet Count 31 thou/uL (130-400); Platelet Morphology Comment Appears Decreased; RBC Distribution Width 18.7 % (11.5-14.5); Red Blood Cell (RBC) Count 4.88 mill/uL (4.70-6.10); White Blood Cell (WBC) Count 3.3 thou/uL (4.8-10.8)
[2020-01-04 08:07] LABS: Lactic Acid 1.7 mmol/L (0.5-2.2)
[2020-01-04] MEDS ORDERED: LENVATINIB MESYLATE 4 MG PO SCH (09:00)
[2020-01-04] MEDS: Lisinopril 10 MG TAB PO SCH (09:46)
[2020-01-04] MEDS: Atorvastatin Calcium 10 MG TAB PO SCH (09:47)
[2020-01-04] MEDS: Polyethylene Glycol 3350 17 GM Packet PO SCH (09:47)
--- NOTE | 2020-01-04 09:54 | PDOC.HOSPP ---
- Subjective Encounter Date: 01/04/20 Subjective: The patient was seen and examined. He denies any abdominal pain at this time. No fever since admission. - Objective Vital Signs & Weight: Vital Signs (12 hours) Temp Pulse Resp BP BP BP Pulse Ox 01/04/20 09:46 138/64 01/04/20 08:00 97.5 F L 96 18 138/64 98 01/04/20 04:00 97.8 F 107 H 20 140/66 100 01/04/20 03:24 97.9 F 103 H 18 144/66 H 98 01/04/20 02:30 97.8 F 107 H 20 159/76 H 99 01/04/20 01:00 119 H 135/86 01/04/20 00:12 85 01/04/20 00:00 97.6 F 116 H 20 185/88 H 100 01/03/20 22:04 97.5 F L 85 22 H 198/92 H 100 Weight Weight 169 lb 1.6 oz I&O: 01/03/20 01/04/20 01/05/20 06:59 06:59 06:59 Intake Total 2960 Balance 2960 Result Diagrams: 01/04/20 04:56 01/04/20 04:56 Hospitalist ROS - Medication Medications: Active Medications Generic Name Dose Route Start Last Admin Trade Name Freq PRN Reason Stop Dose Admin Hydrocodone Bitart/Acetaminophen 1 tab 01/03/20 23:19 01/04/20 00:13 [place] 5/325 PO 1 tab Q4H PRN Administration Moderate Pain (4-6) Atorvastatin Calcium 10 mg 01/04/20 09:00 01/04/20 09:47 Lipitor PO 10 mg DAILY EULALIA Administration Hydralazine HCl 10 mg 01/03/20 23:25 01/04/20 00:12 Apresoline SLOW IVP 10 mg Q6H PRN Administration Hypertension Sodium Chloride 1,000 mls @ 75 mls/hr 01/03/20 23:30 01/04/20 05:51 Normal Saline 0.9% IV 1,000 mls .[id number] EULALIA Administration Lisinopril 10 mg 01/04/20 09:00 01/04/20 09:46 Zestril PO 10 mg DAILY EULAILA Administration Morphine Sulfate 2 mg 01/04/20 02:28 01/04/20 02:37 Morphine SLOW IVP 2 mg Q4H PRN Administration Pain Pantoprazole Sodium 40 mg 01/04/20 09:00 01/04/20 09:46 Protonix PO 40 mg DAILY EULALIA Administration Polyethylene Glycol 17 gm 01/04/20 09:00 01/04/20 09:47 Miralax PO Not Given DAILY EULALIA Sodium Chloride 10 ml 01/04/20 09:00 01/04/20 09:48 Flush - Normal Saline IVF 10 ml Q12HR EULALIA Administration - Exam General Appearance: awake alert ENT: normocephalic atraumatic Neck: supple Respiratory: normal chest expansion, no tachypnea Gastrointestinal: soft, non-tender, non-distended Neurological: cranial nerve grossly intact, no focal deficits Hosp A/P (1) Elevated LFTs Code(s): R79.89 - OTHER SPECIFIED ABNORMAL FINDINGS OF BLOOD CHEMISTRY Status : Acute (2) UTI (urinary tract infection) Status: Acute (3) Hepatocellular carcinoma Code(s): C22.0 - LIVER CELL CARCINOMA Status: Acute (4) Pancytopenia Code(s): D61.818 - OTHER PANCYTOPENIA Status: Acute (5) Hypertension Code(s): I10 - ESSENTIAL (PRIMARY) HYPERTENSION Status: Chronic Qualifiers: Hypertension type: essential hypertension Qualified Code(s): I10 - Essential (primary) hypertension - Plan Elevated bilirubin and alkaline phosphatase with presentation that could be related to sepsis. Cholangitis need to be ruled out. I will order right upper quadrant ultrasound. Continue IV fluids and check blood cultures. His abnormal liver function could be related to his underlying liver malignancy. GI and oncology were consulted.
[2020-01-04 16:04] LABS: SARS-CoV-2 MS2 Positive; SARS-CoV-2 N Gene Negative; SARS-CoV-2 S Gene Negative; SARS-CoV-2 by NAA Not Detected (NotDetected); SARS-CoV-2 orf1ab Negative
[2020-01-04] MEDS: cefTRIAXone\\ROCEPHIN 2 GM in Sodium Chloride 0.9% 100 ML IVPB SCH (20:01)
[2020-01-05] MEDS: Morphine 2 MG/ML VIAL SLOW IVP PRN ×2 (01:41→21:56)
[2020-01-05 03:47] LABS: INR-International Normal Ratio 1.6; Prothrombin Time 19.3 sec (12.0-14.7)
[2020-01-05 03:50] LABS: #Eosinphils 0.1 thou/uL (0.0-0.7); #Lymphocytes 0.3 thou/uL (1.20-3.40); #Monocytes 0.2 thou/uL (0.11-0.59); %Basophils 0.2 % (0.0-1.0); %Eosinophils 5.5 % (0.0-10.0); %Lymphocytes 18.6 % (21.0-51.0); %Monocytes 11.6 % (0.0-10.0); %Neutrophils 64.2 % (42.0-75.0); Hemoglobin 14.3 g/dL (14.0-18.0); Mean Corpuscular HGB CONC 31.9 g/dL (32.0-36.0); Mean Corpuscular Hemoglobin 31.3 pg (27.0-31.0); Mean Corpuscular Volume 98.2 fL (78.0-98.0); Platelet Count 23 thou/uL (130-400); RBC Distribution Width 19.2 % (11.5-14.5); Red Blood Cell (RBC) Count 4.57 mill/uL (4.70-6.10); White Blood Cell (WBC) Count 1.6 thou/uL (4.8-10.8)
[2020-01-05 04:07] LABS: ALT (SGPT) 89 U/L (8-55); AST (SGOT) 153 U/L (5-34); Albumin 2.2 g/dL (3.4-4.8); Alkaline Phosphatase 408 U/L (40-110); Anion Gap 11 mmol/L (10-20); BUN (Urea Nitrogen) 14 mg/dL (8.4-25.7); Bilirubin, Total 10.8 mg/dL (0.2-1.2); Calc. Creatinine Clearance 107 mL/min (70-130); Calcium 8.1 mg/dL (7.8-10.44); Carbon Dioxide 24 mmol/L (23-31); Chloride 110 mmol/L (98-107); Estimated GFR-MDRD Greater than 90; Globulin 3.3 g/dL (2.4-3.5); Glucose 83 mg/dL (83-110); Iron Binding Capacity, Total 118 mcg/dL (261-462); Lipase 83 U/L (8-78); Potassium 3.5 mmol/L (3.5-5.1); Protein, Total 5.5 g/dL (5.8-8.1); Sodium 141 mmol/L (136-145)
[2020-01-05 04:24] LABS: HBSAg Index 0.19 S/CO (0-0.99); Hep B Surf Ag Non-Reactive S/CO (NonReactive)
[2020-01-05 04:25] LABS: Hep A IgM AB Non-Reactive (NonReactive); Hep A IgM S/CO 0.15 S/CO (0-0.79); Hep C IgG Ab Non-Reactive (NonReactive); Hep C Index 0.14 S/CO (0-0.79)
[2020-01-05 04:26] LABS: HBCM Index 0.06 S/CO (0-0.79); Hepatitis B Core IgM Abs Non-Reactive (NonReactive)
[2020-01-05 07:58] LABS: Ferritin 1138.77 ng/mL (22-322)
[2020-01-05] MEDS: Atorvastatin Calcium 10 MG TAB PO SCH (09:00)
[2020-01-05] MEDS: Lisinopril 10 MG TAB PO SCH (09:00)
[2020-01-05] MEDS: Polyethylene Glycol 3350 17 GM Packet PO SCH (09:00)
--- NOTE | 2020-01-05 09:39 | PDOC.MOPN ---
Interval History: weak, has mouth pain. eating poorly. - Vital Signs Vital Signs: Vital Signs (12 hours) Temp Pulse Resp BP Pulse Ox 01/05/20 08:00 97.5 F L 88 18 153/72 H 95 01/05/20 03:55 98.5 F 92 16 150/77 H 97 01/04/20 23:34 98.6 F 90 16 159/69 H 96 Weight Admit Weight 169 lb Weight 169 lb 1.6 oz - Physical Exam General: Cooperative, No acute distress HEENT: Other (dry mouth, jaundice) Lungs: Clear to auscultation Cardiovascular: Other (4/6 murmur) Abdomen: Normal bowel sounds, Other (ruq tenderness) Neurological: Other (weak) Psych/Mental Status: Other - Labs Result Diagrams: 01/05/20 03:30 01/05/20 03:30 Lab results: Laboratory Results - last 24 hr 01/05/20 03:31: PT 19.3 H, INR 1.6 01/05/20 03:31: IgG Total 1398.00, IgM Total 109.00 01/05/20 03:31: Ferritin 1138.77 H 01/05/20 03:30: Carcinoembryonic Ag 1.75 01/05/20 03:30: WBC 1.6 L, RBC 4.57 L, Hgb 14.3, Hct 44.9, MCV 98.2 H, MCH 31.3 H, MCHC 31.9 L, RDW 19.2 H, Plt Count 23 L*, MPV 13.0 H, Neutrophils % 64.2, Neutrophils % (Manual) Not Reportable, Lymphocytes % 18.6 L, Monocytes % 11.6 H , Eosinophils % 5.5, Basophils % 0.2, Neutrophils # 1.0 L, Lymphocytes # 0.3 L, Monocytes # 0.2, Eosinophils # 0.1, Basophils # 0.0 01/05/20 03:30: Sodium 141, Potassium 3.5, Chloride 110 H, Carbon Dioxide 24, Anion Gap 11, BUN 14, Creatinine 0.68 L, Estimated GFR (MDRD) Greater than 90, Glucose 83, Calcium 8.1, TIBC 118 L, Total Bilirubin 10.8 H, AST 153 H, ALT 89 H , Alkaline Phosphatase 408 H, Serum Total Protein 5.5 L, Albumin 2.2 L, Globulin 3.3, Albumin/Globulin Ratio 0.7 L, Lipase 83 H 01/03/20 21:55: COVID-19 PCR Not Detected 01/03/20 18:33: Plasma Alcohol Less than 10 Status: lab reviewed by me A/P - Problem (1) Neutropenia Current Visit: Yes Code(s): D70.9 - NEUTROPENIA, UNSPECIFIED Status: Acute (2) Elevated LFTs Current Visit: No Code(s): R79.89 - OTHER SPECIFIED ABNORMAL FINDINGS OF BLOOD CHEMISTRY Status: Acute (3) Hepatocellular carcinoma Current Visit: No Code(s): C22.0 - LIVER CELL CARCINOMA Status: Acute - Plan Plan: hida scan planned for today elevated LFT's like due to HCC magic mouthwash prn palliate care consult continue IVF
[2020-01-05] MEDS ORDERED: Aluminum & Magnesium Hydroxide 60 ML, Lidocaine 2% Viscous Solution 30 ML, diphenhydrAM... SSW PRN (09:51)
--- NOTE | 2020-01-05 09:53 | CON ---
DATE OF CONSULTATION: REASON FOR CONSULTATION: Liver cancer. HISTORY OF PRESENT ILLNESS: A 74-year-old male with locally advanced hepatocellular carcinoma, status post Avastin plus Tecentriq x3 cycles with stable disease and then switched to Lenvima oral therapy on November 28, who presented to the clinic today with profound weakness, shaking, and lethargy. The patient was given 1 L of IV fluids in the clinic and then sent to the ER for further evaluation after his bilirubin was found to be 12.4 increased from 2.7 three weeks prior. The patient has had very poor appetite, but denies any significant nausea and in the last 5 to 6 weeks has lost 23 pounds. He has chronically elevated LFTs from cirrhosis and his liver cancer, which are stable. The patient denies fevers or other problems recently. In the ER, the patient had a CT abdomen and pelvis which showed that the liver mass was likely smaller and not as well visualized as the prior CT and the bile ducts appeared not to be dilated. He had elevated lactic acid and potassium, and UA was positive for UTI. Gastroenterology has been consulted and Dr. Beal has ordered a right upper quadrant ultrasound to rule out cholangitis. REVIEW OF SYSTEMS: Ten-point review of systems negative except as per HPI. PAST MEDICAL HISTORY: Alcohol-induced cirrhosis, hypertension, atrial fibrillation, and rectal cancer in 2009. PAST SURGICAL HISTORY: Appendectomy, hernia surgery, surgery for his atrial fibrillation and AV valve transplant. SOCIAL HISTORY: Chews tobacco. Former alcohol consumption CURRENT MEDICATION: reviewed PHYSICAL EXAMINATION: VITAL SIGNS: Temperature normal, pulse 86, down from 107. Respirations 16, satting 99% on room air, blood pressure 175/73. GENERAL APPEARANCE: The patient is standing up in the room when I entered and layed down, is in no acute distress. HEENT: Normocephalic, atraumatic. Scleral icterus is noted. SKIN: Diffuse jaundice present. CARDIOVASCULAR: S1 and S2, regular rate. RESPIRATIONS: Nonlabored. ABDOMEN: Distended, but currently nontender. EXTREMITIES: No edema. NEUROLOGIC: Cranial nerves II through XII are grossly intact. PSYCHIATRIC: Awake, alert, oriented x3 with appropriate affect. LABORATORY DATA: White blood cells 3.3, hemoglobin 15, platelets 31. PT 16.3, INR 1.3, PTT 36.3. Potassium 5.6, down to 4.1. Creatinine 0.59. Lactic acid peaked at 5.8, currently 1.7. Bilirubin 13.6, AST 162, ALT 92, ALP 422. Urine positive for UTI. IMAGING DATA: CT chest, abdomen, and pelvis showing improvement in liver mass without any biliary duct dilatation. ASSESSMENT AND PLAN: 74-year-old male with locally advanced HCC, currently on lenvatinib, presenting to the hospital with hyperbilirubinemia and lethargy, found to have lactic acidosis. His bilirubin has increased four fold in the last few weeks, even though his mass has improved and there is no biliary dilatation seen on CT. Dr. Beal has ordered a right upper quadrant ultrasound to evaluate for cholangitis and will follow this up as a potential cause. Lenvatinib can increase LFTs, but typically not the bilirubin, so I do not believe this is the cause and potentially could all be related to his sepsis. Recommend continuing IV fluid resuscitation and antibiotics. Follow up GI consult and RUQ ultrasound. We will hold lenvatinib in the interim while the workup continues. We will follow along with you. Job ID: [id number] [facility]
--- NOTE | 2020-01-05 10:19 | CON ---
DATE OF CONSULTATION: 01/04/2020 HISTORY OF PRESENT ILLNESS: Mr. Villeda is well known to our service, has been admitted twice, once in late November around the through the and then again December 10 through for abdominal pain in conjunction with the recent diagnosis of hepatoma of the liver. He was readmitted from Oncology secondary to failure to thrive, pain, and an increase in his liver enzymes. His bili had gone from 3.7 on the to 12.4 on 01/02. Presently, he feels a bit better, but still has some pain. In talking with Dr. Velazquez, he had been treated with Avastin and Tecentriq, but then was changed to lenvatinib secondary to pain and nausea. There was concern at his 1st admission that he had a portal vein thrombosis diagnosed in the left system and this has really been unchanged on his films since. Apparently, he had radiation therapy as well, initially systemic as he had a large mass in his liver with a blood clot and it is unclear if he had TACE or Y90 after that. Presently, he is without complaints hydration, but wants to eat. His pain is still persistent somewhat. PAST MEDICAL HISTORY: 1. Hepatocellular carcinoma, left lobe of the liver. 2. Portal vein thrombosis noted at presentation, still present on imaging and review of all the images from last admission including the MRIs, he had left lobe portal vein thrombus then, it is nonprogressive. 3. Rectal cancer about 10 years ago. 4. Hypertension. 5. Atrial fibrillation. 6. Cirrhosis of unclear etiology, attributed to alcohol. PAST SURGICAL HISTORY: 1. Appendectomy. 2. Aortic valve replacement. 3. Colon resection. 4. Transient ileostomy one time in the past. ALLERGIES: NONE KNOWN. MEDICATIONS: At home: 1. Tramadol. 2. MiraLAX. 3. Protonix. 4. Zofran. 5. Morphine. 6. Lenvatinib. 7. Atorvastatin. Medicines here: 1. Tylenol. 2. Lipitor. 3. Tums. 4. Rocephin. 5. Apresoline. 6. Morphine. 7. Protonix. 8. MiraLAX. 9. Normal saline at 100. PHYSICAL EXAMINATION: VITAL SIGNS: Temperature is 98 and he is afebrile since admission, pulse was 120 on admission and now is 86, blood pressure 175/73. GENERAL: He is icteric. He is resting in bed. He has no rigors or chills. NECK: Supple without any adenopathy. LUNGS: Clear. HEART: Regular rate and rhythm without clicks or murmurs. ABDOMEN: Tender in the right upper abdomen. There is no rebound. There is no guarding. EXTREMITIES: No clubbing, cyanosis, or edema. LABORATORY DATA: White count 3.3, hemoglobin 15 and 16 yesterday up from 14 on admission, platelet count 31,000, 80% neutrophils, 6% bands, and 8% lymphocytes. INR was 1.3 on the . Sodium 140, potassium 4.1, BUN and creatinine 15 and 0.9, lactic acid is 1.7 now was 5.8 on admission, calcium 8.4. Bilirubin is 13.6, it was 12 yesterday, it was 3.7 on 12/12, it was 8.4 on 11/10, and it was 1.6 on 05/17. His direct bilirubin on the of this month was 2.9, total 3.7 at that time. AST is 162 down from 180, it has been about that level since he has been coming here to the hospital in November. ALT 92, range anywhere from 82 to 118 in that time period as well. Alkaline phosphatase is 422 and has been in the same range ever since he first came. Lipase was 96 on 12/10. AFP was 2.1 on 01/03/2020. TSH was 0.013. ASSESSMENT: 1. Hepatoma. It appears by imaging criteria that it is getting smaller. His AFP was normal last admission, but it is unclear what it was at diagnosis. Diagnosis was made elsewhere. Treatment has taken place elsewhere. 2. Pain ever since he started on adjuvant chemotherapy. He does have some gallstones on an outside ultrasound. He shows no signs of obstruction, but does have obstructive like pattern of his LFTs with elevated alkaline phosphatase and bilirubin out of proportion to the AST and ALT. Differential diagnosis would be gallstones, but again he shows no signs of dilated bile ducts. I have reviewed all imaging since the 1st admission here in November with the radiologist and there has been no significant change in the appearance of intrahepatic ducts. There has been no common or hepatic ductal dilatation. Other than a biliary source for this, one would consider decompensation in the cirrhosis and autoimmune reaction to his immunotherapy. Some type of vascular damage or reaction from his radiation therapy to the liver or other medications. RECOMMENDATIONS: 1. Stop the statins. 2. We will do a full hepatic workup for underlying liver disease as it is unclear what that workup revealed in [place] when he was 1st diagnosed with cirrhosis. We can also see if he shows any markers for autoimmune liver disease, which he would be at risk at with the immune checkpoint inhibitors that he has been treated with. 3. If symptoms persist, could consider an EGD especially with his pain to make sure he does not have any ulcers in the stomach or as it can be seen sometimes after radiation therapy to the liver. 4. We will try to clarify with his oncologist if he received TACE or Y-90 radioembolization, which could have resulted in some type of radiation damage to the biliary tree or stomach. 5. We will get a HIDA scan to see if there are any signs of obstruction of his liver. 6. It should be considered that he may be having decompensation of hepatic function. He has developed some ascites now, which is new. We will follow along with you. Job ID: [id number]
[2020-01-05] MEDS ORDERED: Morphine 2 MG/ML VIAL ONE (12:40)
--- NOTE | 2020-01-05 12:58 | PDOC.HOSPP ---
- Subjective Encounter Date: 01/05/20 Subjective: The patient has been afebrile. - Objective Vital Signs & Weight: Vital Signs (12 hours) Temp Pulse Resp BP BP Pulse Ox 01/05/20 08:00 97.5 F L 88 18 153/72 H 153/72 H 96 01/05/20 03:55 98.5 F 92 16 150/77 H 97 Weight Admit Weight 169 lb Weight 169 lb 1.6 oz I&O: 01/04/20 01/05/20 01/06/20 06:59 06:59 06:59 Intake Total 5370 Balance 5370 Result Diagrams: 01/05/20 03:30 01/05/20 03:30 Hospitalist ROS - Medication Medications: Active Medications Generic Name Dose Route Start Last Admin Trade Name Freq PRN Reason Stop Dose Admin Hydrocodone Bitart/Acetaminophen 1 tab 01/03/20 23:19 01/04/20 00:13 [place] 5/325 PO 1 tab Q4H PRN Administration Moderate Pain (4-6) Atorvastatin Calcium 10 mg 01/04/20 09:00 01/04/20 09:47 Lipitor PO 10 mg DAILY EULALIA Administration Hydralazine HCl 10 mg 01/03/20 23:25 01/04/20 00:12 Apresoline SLOW IVP 10 mg Q6H PRN Administration Hypertension Ceftriaxone Sodium 2 gm/ 100 mls @ 200 mls/hr 01/04/20 21:00 01/04/20 20:01 Sodium Chloride IVPB 100 mls Q24HR EULALIA Administration Sodium Chloride 1,000 mls @ 75 mls/hr 01/03/20 23:30 01/04/20 23:32 Normal Saline 0.9% IV 1,000 mls .[id number] EULALIA Administration Promethazine HCl 12.5 mg/ 50.5 mls @ 202 mls/hr 01/04/20 00:04 01/05/20 02:55 Sodium Chloride IVPB 50.5 mls Q6H PRN Administration Nausea Lisinopril 10 mg 01/04/20 09:00 01/04/20 09:46 Zestril PO 10 mg DAILY EULALIA Administration Morphine Sulfate 2 mg 01/04/20 02:28 01/05/20 01:41 Morphine SLOW IVP 2 mg Q4H PRN Administration Pain Pantoprazole Sodium 40 mg 01/04/20 09:00 01/04/20 09:46 Protonix PO 40 mg DAILY EULALIA Administration Polyethylene Glycol 17 gm 01/04/20 09:00 01/05/20 09:00 Miralax PO Not Given DAILY EULALIA Sodium Chloride 10 ml 01/04/20 09:00 01/04/20 20:02 Flush - Normal Saline IVF 10 ml Q12HR EULALIA Administration Hosp A/P (1) Elevated LFTs Code(s): R79.89 - OTHER SPECIFIED ABNORMAL FINDINGS OF BLOOD CHEMISTRY Status : Acute (2) UTI (urinary tract infection) Status: Acute (3) Hepatocellular carcinoma Code(s): C22.0 - LIVER CELL CARCINOMA Status: Acute (4) Pancytopenia Code(s): D61.818 - OTHER PANCYTOPENIA Status: Acute (5) Hypertension Code(s): I10 - ESSENTIAL (PRIMARY) HYPERTENSION Status: Chronic Qualifiers: Hypertension type: essential hypertension Qualified Code(s): I10 - Essential (primary) hypertension (6) Leukopenia Code(s): D72.819 - DECREASED WHITE BLOOD CELL COUNT, UNSPECIFIED Status: Acute (7) Thrombocytopenia Code(s): D69.6 - THROMBOCYTOPENIA, UNSPECIFIED Status: Chronic - Plan 01/03: Elevated bilirubin and alkaline phosphatase with presentation that could be related to sepsis. Cholangitis need to be ruled out. I will order right upper quadrant ultrasound. Continue IV fluids and check blood cultures. His abnormal liver function could be related to his underlying liver malignancy. GI and oncology were consulted. 01/04: LFTs are slightly trending down. HIDA scan ordered by GI. Leukopenia and thrombocytopenia are present and are likely due to decompensated liver disease in addition to treatment with Levantinib. Hemoglobin level within normal limits. Continue to trend CBC and transfuse for platelet level of 10,000 or less in the absence of bleeding. Cultures showing no growth so far. Remains on empiric antibiotics. The possibility of infection seems to be less likely at this time.
[2020-01-05 13:22] LABS: ANA Symphony (Qualitative) Negative (Negative); ANA Symphony (Quantitative) 0.2 Ratio (< 0.7 Negative); EliA Vaculitis New Method **** NEW METHOD ****; dsDNA IgG Antibody 1.4 IU/mL (<10 Negative)
[2020-01-05] MEDS ORDERED: Iopamidol-370 76% 500 ML 1 ML ONE (14:26)
--- NOTE | 2020-01-05 14:47 | NM ---
Exam: Nuclear medicine HIDA scan HISTORY: Elevated liver function tests. Hepatoma. Gallstones COMPARISON: None TECHNIQUE: Patient was pretreated with 1.5 mcg of CCK intravenously 30 minutes prior to injection of radiopharmaceutical. Patient was administered 4.7 mCi of technetium 99m mebrofenin intravenously. FINDINGS: Appropriate uptake of the radiotracer by the hepatic parenchyma. Passage of radiotracer from the comm on bile duct into small bowel loops. After 60 minutes, there is no radiotracer localization in the gallbladder. Patient was administered morphine intravenously. Additional 30 minutes of imaging was pe rformed. No evidence of radiotracer localization within the gallbladder IMPRESSION: Scintigraphic evidence of acute cholecystitis
[2020-01-05] MEDS: Sodium Chloride 0.9% 1,000 ML IV SCH (15:30)
--- NOTE | 2020-01-05 18:31 | PRG ---
DATE OF SERVICE: 01/05/2020 SUBJECTIVE: The patient is somewhat lethargic according to the nursing staff. He does appear somewhat lethargic to me, but able to engage in a conversation. He actually denies having any abdominal pain today. There is no nausea or vomiting. He does have dry mouth and soreness in his mouth. There is hardly any appetite. PHYSICAL EXAMINATION: VITAL SIGNS: Temperature is 97.8, blood pressure 134/64, pulse of 94. GENERAL: He appears to be weak and somewhat lethargic. He is readily arousable, oriented, and lucid. HEENT: Shows bilateral scleral icterus. Oropharynx is very dry. NECK: Supple. CV: Shows normal S1 and S2. Irregular rhythm with a 2/6 systolic murmur. CHEST: Shows breath sounds. ABDOMEN: Somewhat protuberant with active bowel sounds. There is no tympany. There is no tenderness. EXTREMITIES: Show no edema. LABORATORY DATA: Electrolytes within normal range. Creatinine is 0.68, bilirubin is down at 10.8, AST 153, ALT of 89, alkaline phosphatase 408. His CEA is 1.75, lipase of 83, ferritin of 1138. WBC is 1.6, hemoglobin 14.3, and platelet count of 23. HIDA scan showed normal uptake and excretion into the bile duct, into the small bowel. No evidence of biliary obstruction. ASSESSMENT: 1. Hepatoma, status post either transarterial chemoembolization or Y90 treatment, currently on adjuvant chemotherapy. Tumor appears to be smaller on CT yesterday. 2. Portal vein thrombosis. 3. Elevation of liver profile, likely from hepatocellular carcinoma treatment in background of cirrhosis. No evidence of biliary obstruction with normal flow on HIDA scan. 4. Anorexia and failure to thrive. PLAN: 1. Supportive care at the present time. 2. Continue to trend his liver profile. 3. Would add megestrol for appetite stimulation. We will consider EGD if he has recurrent epigastric pain. 4. We will follow. Job ID: [id number]
[2020-01-05] MEDS: cefTRIAXone\\ROCEPHIN 2 GM in Sodium Chloride 0.9% 100 ML IVPB SCH (20:42)
[2020-01-05] MEDS: hydrALAZINE 20 MG/ML VIAL SLOW IVP PRN (22:00)
[2020-01-05] MEDS: Nitroglycerin 0.4 MG TAB (25 Tab Bottle) SL PRN ×3 (22:14→22:32)
--- NOTE | 2020-01-05 22:29 | RAD ---
EXAM: Single view of the chest HISTORY: Chest pain and tachypnea COMPARISON: CT chest 01/03/2020 FINDINGS: Single view of the chest shows a normal sized cardiomediastinal silhouette. The patient is status post sternotomy. There is new opacity in the right lung base which may represent partial atelectasis or an infiltrate. Degenerative changes are seen in the spine. IMPRESSION: Right basilar atelectasis versus infiltrate
[2020-01-05] MEDS ORDERED: Morphine 2 MG/ML SYRINGE SLOW IVP PRN (22:31)
[2020-01-05] MEDS ORDERED: Morphine 2 MG/ML VIAL SLOW IVP PRN (22:39)
[2020-01-05] MEDS ORDERED: Metoprolol Tartrate 5 MG/5 ML VIAL IVP SCH (22:45)
[2020-01-05 22:51] LABS: Lactic Acid 2.1 mmol/L (0.5-2.2)
--- NOTE | 2020-01-05 22:51 | PDOC.EVN ---
Event Note - Event Note Event Note: Called to bedside for acute chest pain, patient chart reviewed, history of valve replacement (unknown which one, was for afib so perhaps mitral valve). He is here for liver failure, liver cancer, had hepatobiliary scan today w/ possible cholecystitis. physical exam w/ tachycardia, tachypnea BP 135/73, hr 121, rr36. murmur auscultated, diastolic perhaps mitral stenosis, otherwise exam unremarkable labs most critical for platelets of 23, new CXR w/ possible infiltrate or atalectasis new EKG compared with old one w/ new TWI in v1, v2, 2, 3, avr, avf. Called Dr De La Cruz who is evaluating EKG also ordered CT chest rule out dissection or PE gave nitro, asa, metoprolol. he is on protonix, given low platelets will need to watch closely for GIB. will follow up w/ cardiology and also will follow CT results
[2020-01-05 22:56] LABS: Anion Gap 11 mmol/L (10-20); BUN (Urea Nitrogen) 16 mg/dL (8.4-25.7); Calc. Creatinine Clearance 107 mL/min (70-130); Calcium 7.9 mg/dL (7.8-10.44); Carbon Dioxide 22 mmol/L (23-31); Chloride 110 mmol/L (98-107); Estimated GFR-MDRD Greater than 90; Glucose 127 mg/dL (83-110); Magnesium 1.3 mg/dL (1.6-2.6); Potassium 3.7 mmol/L (3.5-5.1); Sodium 139 mmol/L (136-145)
[2020-01-05] MEDS ORDERED: Aspirin 325 MG TAB PO SCH (23:00)
[2020-01-05 23:18] LABS: CKMB 2.2 ng/mL (0-6.6)
--- NOTE | 2020-01-06 | CT ---
EXAM: CTA of the chest and abdomen HISTORY: Acute chest pain and back pain COMPARISON: 01/03/2020 TECHNIQUE: Multiple contiguous axial images were obtained a CTA of the chest and abdomen with contras t per aortic dissection protocol. Sagittal and coronal 3-D MIP reformats were performed. FINDINGS: HEART: Global cardiomegaly. PULMONARY ARTERIES: Normal in caliber without filling defects to suggest pulmonary emboli. MEDIASTINUM: No hilar or mediastinal lymphadenopathy. LUNGS: No focal infiltrates or masses. Bilateral dependent atelectasis. The area of nodularity in the left periphery of the lung disappeared and likely represented round atelectasis. PLEURAL SPACE: Tiny bilateral pleural effusions. No pneumothorax. CHEST AND ABDOMINAL WALL SOFT TISSUES: Status post sternotomy for CABG. Diffuse soft tissue anasarca. LIVER: Cirrhotic. There is a stable hypodense region in the left lobe of the liver measuring 3.1 cm i n size with moderate stable ascites. GALLBLADDER: Unremarkable. KIDNEYS: Unremarkable. SPLEEN: Enlarged. PANCREAS: Unremarkable. BOWEL: Unremarkable. RETROPERITONEUM: No lymphadenopathy BONES: Degenerative changes in the spine. ASCENDING THORACIC AORTA: Normal caliber without evidence of dissection or aneurysmal dilatation. DESCENDING THORACIC AORTA: Normal caliber without evidence of dissection or aneurysmal dilatation. ABDOMINAL AORTA: Normal caliber without evidence of dissection or aneurysmal dilatation. CELIAC TRUNK: Patent SMA: Patent. Mild ostial atherosclerotic disease. LUNA: Patent RENAL ARTERIES: Bilateral single renal arteries without significant atherosclerotic disease IMPRESSION: 1. No evidence of thoracic or abdominal aortic aneurysm or dissection 2. Stable findings compared to the CT abdomen from 2 days ago.
[2020-01-06] MEDS: Morphine 2 MG/ML VIAL SLOW IVP PRN ×2 (00:38→08:02)
[2020-01-06] MEDS: Sodium Chloride 0.9% 1,000 ML IV SCH (00:38)
[2020-01-06] MEDS ORDERED: Metoprolol Tartrate 25 MG TAB PO SCH (01:00)
[2020-01-06] MEDS: HYDROcodone/Acetaminophen 5/325 mg Tablet PO PRN ×2 (02:29→10:36)
[2020-01-06 04:28] LABS: #Eosinphils 0.1 thou/uL (0.0-0.7); #Lymphocytes 0.4 thou/uL (1.20-3.40); #Monocytes 0.5 thou/uL (0.11-0.59); #Neutrophils 2.9 thou/uL (1.40-6.50); %Basophils 0.3 % (0.0-1.0); %Eosinophils 2.9 % (0.0-10.0); %Lymphocytes 10.2 % (21.0-51.0); %Monocytes 12.5 % (0.0-10.0); %Neutrophils 74.1 % (42.0-75.0); Hemoglobin 14.6 g/dL (14.0-18.0); Mean Corpuscular Hemoglobin 31.4 pg (27.0-31.0); Mean Corpuscular Volume 98.1 fL (78.0-98.0); Mean Platelet Volume 12.6 fL (7.4-10.4); Platelet Count 38 thou/uL (130-400); RBC Distribution Width 19.1 % (11.5-14.5); Red Blood Cell (RBC) Count 4.66 mill/uL (4.70-6.10)
[2020-01-06 04:34] LABS: ALT (SGPT) 88 U/L (8-55); AST (SGOT) 148 U/L (5-34); Albumin 2.2 g/dL (3.4-4.8); Alkaline Phosphatase 404 U/L (40-110); Anion Gap 12 mmol/L (10-20); BUN (Urea Nitrogen) 15 mg/dL (8.4-25.7); Bilirubin, Total 10.6 mg/dL (0.2-1.2); Calc. Creatinine Clearance 115 mL/min (70-130); Calcium 8.3 mg/dL (7.8-10.44); Carbon Dioxide 20 mmol/L (23-31); Chloride 109 mmol/L (98-107); Estimated GFR-MDRD Greater than 90; Globulin 3.5 g/dL (2.4-3.5); Glucose 110 mg/dL (83-110); Potassium 3.6 mmol/L (3.5-5.1); Protein, Total 5.7 g/dL (5.8-8.1); Sodium 137 mmol/L (136-145)
[2020-01-06 04:35] LABS: Troponin I 0.048 ng/mL (< 0.028)
[2020-01-06] MEDS: Nitroglycerin 0.4 MG TAB (25 Tab Bottle) SL PRN ×3 (07:09→07:47)
[2020-01-06] MEDS: Atorvastatin Calcium 10 MG TAB PO SCH (08:14)
[2020-01-06] MEDS: Lisinopril 10 MG TAB PO SCH (08:14)
[2020-01-06] MEDS: Polyethylene Glycol 3350 17 GM Packet PO SCH (08:14)
[2020-01-06] MEDS: Megestrol Acetate 800 MG/20 ML UDCUP PO SCH (08:21)
[2020-01-06 08:39] LABS: Troponin I 0.046 ng/mL (< 0.028)
--- NOTE | 2020-01-06 11:17 | PDOC.MOPN ---
Interval History: Having pain. Remains jaundice. Moved to [facility] last night for CP. - Vital Signs Vital Signs: Vital Signs (12 hours) Temp Pulse Resp BP BP Pulse Ox 01/06/20 08:14 162/98 H 01/06/20 07:54 97.7 F 01/06/20 03:28 97.8 F 01/06/20 00:11 96 01/05/20 23:28 97.6 F 93 40 H 142/72 H 96 Weight Admit Weight 169 lb Weight 169 lb 1.6 oz Most Recent Monitor Data Heart Rate from ECG 88 NIBP 154/80 NIBP BP-Mean 104 Respiration from ECG 14 SpO2 95 - Physical Exam General: Mild distress HEENT: Other (jaundice) Lungs: Clear to auscultation Cardiovascular: Regular rate Abdomen: Normal bowel sounds Extremities: Other Neurological: Normal speech - Labs Result Diagrams: 01/06/20 03:29 01/06/20 03:29 Lab results: Laboratory Results - last 24 hr 01/06/20 07:54: Troponin I 0.046 H 01/06/20 03:29: Troponin I 0.048 H 01/06/20 03:29: WBC 4.0 L, RBC 4.66 L, Hgb 14.6, Hct 45.7, MCV 98.1 H, MCH 31.4 H, MCHC 32.0, RDW 19.1 H, Plt Count 38 L, MPV 12.6 H, Neutrophils % 74.1, Neutrophils % (Manual) Not Reportable, Lymphocytes % 10.2 L, Monocytes % 12.5 H , Eosinophils % 2.9, Basophils % 0.3, Neutrophils # 2.9, Lymphocytes # 0.4 L, Monocytes # 0.5, Eosinophils # 0.1, Basophils # 0.0 01/06/20 03:29: Sodium 137, Potassium 3.6, Chloride 109 H, Carbon Dioxide 20 L, Anion Gap 12, BUN 15, Creatinine 0.63 L, Estimated GFR (MDRD) Greater than 90, Glucose 110, Calcium 8.3, Total Bilirubin 10.6 H, AST 148 H, ALT 88 H, Alkaline Phosphatase 404 H, Serum Total Protein 5.7 L, Albumin 2.2 L, Globulin 3.5, Albumin/Globulin Ratio 0.6 L 01/05/20 22:27: CK-MB (CK-2) 2.2, Troponin I 0.066 H 01/05/20 22:27: Sodium 139, Potassium 3.7, Chloride 110 H, Carbon Dioxide 22 L, Anion Gap 11, BUN 16, Creatinine 0.68 L, Estimated GFR (MDRD) Greater than 90, Glucose 127 H, Calcium 7.9, Magnesium 1.3 L 01/05/20 22:27: Lactic Acid 2.1 01/05/20 03:31: BATSHEVA Screen Negative, BATSHEVA Scrn Qualitative Negative, BATSHEVA Scrn Quantitative 0.2, BATSHEVA & Anti-CHYNA New Method NEW METHOD , Anti-ds DNA IgG Ab 1.4, Anti-ds DNA Interp , Anti-Mitochondrial Ab 3.0, Mitochondria M2 Ab Intp 01/05/20 03:31: Hepatitis A IgM Ab Non-Reactive, Hep Bs Antigen Non-Reactive, Hep B Core IgM Ab Non-Reactive, Hepatitis C Antibody Non-Reactive Status: lab reviewed by me A/P - Problem (1) Neutropenia Current Visit: Yes Code(s): D70.9 - NEUTROPENIA, UNSPECIFIED Status: Acute (2) Elevated LFTs Current Visit: No Code(s): R79.89 - OTHER SPECIFIED ABNORMAL FINDINGS OF BLOOD CHEMISTRY Status: Acute (3) Hepatocellular carcinoma Current Visit: No Code(s): C22.0 - LIVER CELL CARCINOMA Status: Acute - Plan Plan: Hida scan showed acute cholecystitis, don't think he is a surgical candidate LFT's stable continued pain despite meds, will adjust Spoke with , she will come to hospital to sit with patient and for decision making Hospice may be best choice at this point Discussed with Dr. Velazquez.
[2020-01-06] MEDS: Naproxen 500 MG TAB PO PRN (11:30)
[2020-01-06] MEDS: Lidocaine 5% Patch TD SCH (11:30)
--- NOTE | 2020-01-06 13:31 | PRG ---
DATE OF SERVICE: 01/06/2020 SUBJECTIVE: Mr. Villeda states that he has had pain in the left upper quadrant over the last week. Prior to that, he had some chronic right lower quadrant pain. There is no nausea or vomiting today. OBJECTIVE: VITAL SIGNS: Temperature 97.0, blood pressure 166/88, pulse 94. GENERAL: He is jaundiced. No acute distress. HEENT: Eyes have scleral icterus. LUNGS: Clear to auscultation bilaterally. HEART: Regular rate and rhythm without murmur. ABDOMEN: Soft. He has mild tenderness down in the right lower quadrant, but no tenderness at all in right upper quadrant. Bowel sounds are present. EXTREMITIES: No lower extremity edema. He has a lidocaine patch over the left upper quadrant where he states his pain has been, but this is nontender to palpation currently. LABORATORY DATA: White blood cell count 4.0, hemoglobin 14.6, platelets 38,000. INR 1.6. Bilirubin 10.6, AST 148, ALT 88, alkaline phosphatase 404. IMPRESSION: 1. Left upper quadrant abdominal pain. The patient states this has been present for a week. This HIDA scan showed no filling of the gallbladder. However, he has no tenderness in the right upper quadrant. Physical exam is not really consistent with acute cholecystitis. CT scan showed a normal gallbladder. However, this is not sensitive for gallbladder disease. It would be reasonable to repeat an ultrasound of the gallbladder. He did have an ultrasound back in November that showed small gallstones. If he does have acute cholecystitis now options could include cholecystostomy tube versus surgery versus no intervention as the patient is considering hospice care. 2. Hepatocellular carcinoma status post chemo embolization. 3. Portal vein thrombosis. 4. Anorexia. 5. Failure to thrive. RECOMMENDATIONS: 1. We will need to discuss overall treatment plan. He is meeting with Dr. Velazquez this afternoon and considering hospice care. 2. Consider repeat ultrasound and surgical consultation depending on these findings and depending on his desire to pursue further treatment of the suspected cholecystitis. Again, his physical exam is not really consistent with that given that he has no right upper quadrant tenderness. Job ID: [id number]
--- NOTE | 2020-01-06 15:32 | PDOC.HOSPP ---
- Subjective Encounter Date: 01/06/20 Subjective: The patient is complaining of left-sided chest pain. - Objective Vital Signs & Weight: Vital Signs (12 hours) Temp Pulse Resp BP BP BP Pulse Ox 01/06/20 14:15 98.4 F 98 20 167/75 H 96 01/06/20 12:29 166/88 H 01/06/20 12:03 97 F L 01/06/20 08:14 162/98 H 01/06/20 07:54 97.7 F Weight Admit Weight 169 lb 1.6 oz Weight 169 lb 1.6 oz Most Recent Monitor Data Heart Rate from ECG 95 NIBP 166/82 NIBP BP-Mean 110 Respiration from ECG 31 SpO2 97 I&O: 01/05/20 01/06/20 01/07/20 06:59 06:59 06:59 Intake Total 5370 2340 Output Total 200 Balance 5370 2140 Result Diagrams: 01/06/20 03:29 01/06/20 03:29 Hospitalist ROS - Medication Medications: Active Medications Generic Name Dose Route Start Last Admin Trade Name Freq PRN Reason Stop Dose Admin Hydrocodone Bitart/Acetaminophen 1 tab 01/03/20 23:19 01/06/20 10:36 [place] 5/325 PO 1 tab Q4H PRN Administration Moderate Pain (4-6) Hydralazine HCl 10 mg 01/03/20 23:25 01/05/20 22:00 Apresoline SLOW IVP 10 mg Q6H PRN Administration Hypertension Ceftriaxone Sodium 2 gm/ 100 mls @ 200 mls/hr 01/04/20 21:00 01/05/20 20:42 Sodium Chloride IVPB 100 mls Q24HR EULALIA Administration Sodium Chloride 1,000 mls @ 75 mls/hr 01/03/20 23:30 01/06/20 00:38 Normal Saline 0.9% IV 1,000 mls .[id number] EULALIA Administration Promethazine HCl 12.5 mg/ 50.5 mls @ 202 mls/hr 01/04/20 00:04 01/05/20 02:55 Sodium Chloride IVPB 50.5 mls Q6H PRN Administration Nausea Lidocaine 1 patch 01/06/20 11:00 01/06/20 11:30 Lidoderm 5% Patch TD 1 patch 1100 EULALIA Administration Lisinopril 10 mg 01/04/20 09:00 01/06/20 08:14 Zestril PO 10 mg DAILY EULALIA Administration Megestrol Acetate 800 mg 01/06/20 09:00 01/06/20 08:21 Megace PO 800 mg DAILY EULALIA Administration Morphine Sulfate 2 mg 01/04/20 02:28 01/06/20 08:02 Morphine SLOW IVP 2 mg Q4H PRN Administration Pain Morphine Sulfate 2 mg 01/05/20 22:39 01/05/20 23:05 Morphine SLOW IVP 2 mg Q20M PRN Administration chest pain after 3 nitros Naproxen 500 mg 01/06/20 10:37 01/06/20 11:30 Naprosyn PO 500 mg TID PRN Administration Mild-Moderate Pain (1-5) Nitroglycerin 0.4 mg 01/05/20 22:09 01/06/20 07:47 Nitrostat SL 0.4 mg Q5MIN PRN Administration Chest Pain Pantoprazole Sodium 40 mg 01/04/20 09:00 01/06/20 08:15 Protonix PO 40 mg DAILY EULALIA Administration Polyethylene Glycol 17 gm 01/04/20 09:00 01/06/20 08:14 Miralax PO 17 gm DAILY EULALIA Administration - Exam General Appearance: awake alert ENT: normocephalic atraumatic Neck: supple, no JVD Heart: RRR Respiratory: normal chest expansion, no tachypnea Gastrointestinal: soft, non-tender, non-distended, normal bowel sounds Hosp A/P (1) Elevated LFTs Code(s): R79.89 - OTHER SPECIFIED ABNORMAL FINDINGS OF BLOOD CHEMISTRY Status : Acute (2) UTI (urinary tract infection) Status: Acute (3) Hepatocellular carcinoma Code(s): C22.0 - LIVER CELL CARCINOMA Status: Acute (4) Pancytopenia Code(s): D61.818 - OTHER PANCYTOPENIA Status: Acute (5) Hypertension Code(s): I10 - ESSENTIAL (PRIMARY) HYPERTENSION Status: Chronic Qualifiers: Hypertension type: essential hypertension Qualified Code(s): I10 - Essential (primary) hypertension (6) Leukopenia Code(s): D72.819 - DECREASED WHITE BLOOD CELL COUNT, UNSPECIFIED Status: Acute (7) Thrombocytopenia Code(s): D69.6 - THROMBOCYTOPENIA, UNSPECIFIED Status: Chronic - Plan 01/03: Elevated bilirubin and alkaline phosphatase with presentation that could be related to sepsis. Cholangitis need to be ruled out. I will order right upper quadrant ultrasound. Continue IV fluids and check blood cultures. His abnormal liver function could be related to his underlying liver malignancy. GI and oncology were consulted. 01/04: LFTs are slightly trending down. HIDA scan ordered by GI. Leukopenia and thrombocytopenia are present and are likely due to decompensated liver disease in addition to treatment with Levantinib. Hemoglobin level within normal limits. Continue to trend CBC and transfuse for platelet level of 10,000 or less in the absence of bleeding. Cultures showing no growth so far. Remains on empiric antibiotics. The possibility of infection seems to be less likely at this time. 01/05: Left-sided chest pain with point tenderness at the costochondral joint in the lower chest wall suggesting costochondritis. Cardiac etiology is less likely. I have ordered lidocaine patch and naproxen. His HIDA scan suggesting presence of cholecystitis. However, the patient does not have any abdominal pain or tenderness. If the patient does not decide to proceed with hospice, we will repeat ultrasound of the gallbladder.
--- NOTE | 2020-01-06 15:52 | PDOC.FMACP ---
Advance Care Planning - Note Participants: patient, family, palliative care Summary: Palliative Care revisited Advanced Care Planning, opportunity to decline. The diagnosis, prognosis and goals of care were discussed. Appropriate forms and documentation to accomplish the goals of care were discussed. All questions were answered. Mr Villeda and his are electing to transition to DNAR and completed a OOHDNAR for physician signature. Discussing to transition to comfort measures with hospice care and forgo further therapies. Please refer to Palliative Care notes in note section Time Spent (mins): 20
[2020-01-06] MEDS: cefTRIAXone\\ROCEPHIN 2 GM in Sodium Chloride 0.9% 100 ML IVPB SCH (22:31)
[2020-01-06] MEDS ORDERED: Lidocaine Patch Removal 1 EACH TOP SCH (23:00)
[2020-01-07 07:42] VITALS: TEMP 97.6
[2020-01-07] MEDS: Morphine 2 MG/ML VIAL SLOW IVP PRN ×2 (08:06→14:18)
[2020-01-07] MEDS: Lisinopril 10 MG TAB PO SCH (08:18)
[2020-01-07] MEDS: Megestrol Acetate 800 MG/20 ML UDCUP PO SCH (08:19)
[2020-01-07 08:20] VITALS: BP 162/98
[2020-01-07] MEDS: Lidocaine 5% Patch TD SCH (08:40)
[2020-01-07] MEDS: Naproxen 500 MG TAB PO PRN (08:42)
[2020-01-07] MEDS: Polyethylene Glycol 3350 17 GM Packet PO SCH (08:47)
[2020-01-07] MEDS ORDERED: Lidocaine 5% Patch TD SCH (09:00)
[2020-01-07 09:17] LABS: HBV as IU/mL HBV DNA not detected IU/mL (.)
--- NOTE | 2020-01-07 09:31 | PDOC.FMACP ---
Advance Care Planning - Problem (1) Neutropenia Status: Acute Code(s): D70.9 - NEUTROPENIA, UNSPECIFIED (2) Elevated LFTs Status: Acute Code(s): R79.89 - OTHER SPECIFIED ABNORMAL FINDINGS OF BLOOD CHEMISTRY (3) Hepatocellular carcinoma Status: Acute Code(s): C22.0 - LIVER CELL CARCINOMA - Note Summary: Advanced Care Planning was discussed. The diagnosis, prognosis and goals of care were discussed. Appropriate forms and documentation to accomplish the goals of care were discussed. All questions were answered. The Palliative Care Team will be engaged to assist with completion of any outstanding forms that are needed. Time Spent (mins): 20 (patient and family discussing home with hospice)
[2020-01-07 14:12] LABS: Smooth Muscle Total ABS 9 Units (0-19)
--- NOTE | 2020-01-07 14:18 | PDOC.MOPN ---
Interval History: c/o pain, family and patient have decided to go home with hospice - Vital Signs Vital Signs: Vital Signs (12 hours) Temp Pulse Resp BP BP Pulse Ox 01/07/20 08:18 162/98 H 01/07/20 08:00 98 01/07/20 07:39 97.6 F 110 H 16 159/75 H 98 Weight Admit Weight 169 lb 1.6 oz Weight 169 lb 1.6 oz Most Recent Monitor Data Heart Rate from ECG 95 NIBP 166/82 NIBP BP-Mean 110 Respiration from ECG 31 SpO2 97 - Physical Exam General: Alert, Oriented x3, No acute distress HEENT: Atraumatic, PERRLA, EOMI, Mucous membr. moist/pink Neurological: Normal speech - Labs Result Diagrams: 01/06/20 03:29 01/06/20 03:29 Lab results: Laboratory Results - last 24 hr 01/05/20 03:30: Smooth Muscle Ab Titer 9, Hep B DNA, Quant log10 TNP, Hep B DNA (Units/mL) HBV DNA not detected, Hepatitis B Interp Status: lab reviewed by me A/P - Problem (1) Neutropenia Current Visit: Yes Code(s): D70.9 - NEUTROPENIA, UNSPECIFIED Status: Acute (2) Elevated LFTs Current Visit: No Code(s): R79.89 - OTHER SPECIFIED ABNORMAL FINDINGS OF BLOOD CHEMISTRY Status: Acute (3) Hepatocellular carcinoma Current Visit: No Code(s): C22.0 - LIVER CELL CARCINOMA Status: Acute - Plan Plan: 1. home with hospice 2. IV morphine now for pain 3. [place] x 1 now as he has long ride home
[2020-01-07] MEDS: HYDROcodone/Acetaminophen 5/325 mg Tablet PO PRN (14:19)
--- NOTE | 2020-01-08 13:06 | EKG ---
Test Reason : WEAKNESS Blood Pressure : / mmHG Vent. Rate : 085 BPM Atrial Rate : 085 BPM P-R Int : 170 ms QRS Dur : 108 ms QT Int : 404 ms P-R-T Axes : 002 -46 060 degrees QTc Int : 480 ms Sinus rhythm with Premature atrial complexes Incomplete right bundle branch block Left anterior fascicular block Voltage criteria for left ventricular hypertrophy Prolonged QT Abnormal ECG Confirmed by MELINDA ROBLERO ([id number]), editor sound RALF BARNES ([id number]) on 01/08/2020 1:06:24 PM Referred By: Confirmed By:MELINDA ROBLERO
--- NOTE | 2020-01-10 08:24 | DIS ---
DATE OF ADMISSION: 01/03/2020 DATE OF DISCHARGE: 01/07/2020 DISCHARGE DIAGNOSES: 1. Hepatocellular carcinoma. 2. Pancytopenia. 3. Elevated liver function tests. 4. Urinary tract infection. 5. Hypertension. 6. Leukopenia. 7. Costochondritis. DISCHARGE MEDICATIONS: These are unchanged from the patient's home medications. HISTORY OF PRESENT ILLNESS AND HOSPITAL COURSE: The patient is a 74-year-old male with past medical history of liver cirrhosis and hepatocellular carcinoma, who was sent by his oncologist to the hospital due to elevated bilirubin level on routine labs. The patient's bilirubin and alkaline phosphatase were found to be elevated beyond his baseline. GI was consulted and a HIDA scan was obtained, which suggested the possibility of cholecystitis since the filling of the gallbladder was not present. However, due to the patient's lack of other features of disease including right upper quadrant pain or tenderness and lack of inflammatory findings on the CT scan of the abdomen, the diagnosis was still in question. The patient met with palliative care team and his oncologist and the decision was made to forego further testing and pursue hospice care. During his hospital stay, the patient developed left-sided reproducible chest pain over the costochondral joints, likely due to costochondritis. The pain was managed with naproxen and lidocaine patches. Further medications to manage his symptoms will be according to his hospice program. Job ID: [id number]
--- NOTE | 2020-01-10 12:20 | PQF ---
CLINICAL DOCUMENTATION CLARIFICATION FORM: Please check appropriate box(es): [ > ] Elevated liver enzyme due to liver cirrhosis [ > ] Elevated liver enzyme due to liver Cancer [ ] Other diagnosis (Please specify if any) [ ] Unable to determine In addition, please specify: Present on Admission (POA): [ >] Yes [ ] No [ ] Unable to determine To be completed by CDI/Coding staff for physician review: Present Clinical Indicators - Signs / Symptoms / Labs Results and Location in Medical Record [x ] His abnormal liver function could be related to his underlying malignancy Progress notes on 01/03 by Josep Echavarria [ x ] Elevated LFT's like due to HCC oncology progress notes on 01/04 by Carolyn Schafer [ x ] Elevation of liver profile, likely from hepatocellular carcinoma treatment in background of cirrhosis Progress notes on 01/04 by dacia Goetz [ x] He has chronically elevated LFTs from cirrhosis and his liver cancer Consult on 01/03 by Basil Velazquez Present Risk Factors Results and Location in Medical Record [ x ] Aged person 74 yrs H&P on Josep Echavarria [x] Pmhx of liver ca with cirrhosis H&P on Josep Echavarria [ ] [ ] Present Treatments Results and Location in Medical Record [x ] Oncology consultation Consult on 01/03 by Basil Velazquez [x ] Levatinib 4 mg Medications on 01/02 [ ] [ ] CDS/Parasitology Teacher Signature: RK Phone #: Date/Time: 01/10/2020. This is a permanent part of the Medical Record [facility]
--- NOTE | 2020-01-10 17:25 | EKG ---
Test Reason : Blood Pressure : / mmHG Vent. Rate : 113 BPM Atrial Rate : 113 BPM P-R Int : 210 ms QRS Dur : 102 ms QT Int : 356 ms P-R-T Axes : 041 036 202 degrees QTc Int : 488 ms Sinus tachycardia with 1st degree A-V block with Premature atrial complexes Abnormal ECG When compared with ECG of 03-JAN-2020 17:05, (Unconfirmed) SC interval has increased Left anterior fascicular block is no longer Present Incomplete right bundle branch block is no longer Present Confirmed by LUIS EDUARDO AU ([id number]) on 01/10/2020 5:25:12 PM Referred By: CHRISTEN Confirmed By:LUIS EDUARDO AU
--- NOTE | 2020-01-11 00:24 | PQF ---
CLINICAL DOCUMENTATION CLARIFICATION FORM: Dear : Yanira Beal MD Date / Time: 01/11/2020 Please exercise your independent, professional judgment in responding to the clarification form. Clinical indicators are provided on the bottom of this form for your review Please check appropriate box(es) to clarify if the following diagnosis has been ruled in our ruled out: [ > ] Ruled in Sepsis [ > ] Continue to treat [ ] Resolved [ ] Ruled out Sepsis [ ] Improving [ ] Cannot rule out diagnosis [ ] Other diagnosis (Please specify if any) [ ] Unable to determine Physician Signature: Date/Time: For continuity of documentation, please document condition throughout progress notes and discharge summary. Thank You. To be completed by CDI/Coding staff for physician review: Present Clinical Indicators - Signs / Symptoms / Labs Results and Location in Medical Record [ x] Sepsis H&P on 01/02 by Josep Echavarria [ x ] Presents with sepsis and UTI H&P on 01/02 by Josep Echavarria [ x] Elevated bilirubin and alkaline phosphatase with presentation that could be related to sepsis- Progress notes on 01/03 by Josep Echavarria [x ] Lactic acid 3.2. Present Risk Factors Results and Location in Medical Record [ x] Aged person: 74 yrs H&P on 01/02 by Josep Echavarria [ x ] UTI H&P on 01/02 by Josep Echavarria [ ] [ ] Present Treatments Results and Location in Medical Record [x ] Sepsis bundle started H&P on 01/02 by Josep Echavarria [x ] Rocephin IV Medications from 01/02 to 01/06 [ ] [ ] CDS/Pumper Gager Signature: RK Phone #: Date/Time: 01/11/2020 This is a permanent part of the Medical Record [facility]
[2020-01-11 14:38] LABS: Alpha-1-Antitrypsin 157 mg/dL (101-187)
== END 2020-01-07 14:45 | disposition hospice, home (50) | DRG 871 ==
LOC: ERS 16:48 → ONC 21:27 → IMCU/EMU 01-05 23:57 → ONC 01-06 14:18
PROVIDERS: ADMIT Internal Medicine; ATTEND Internal Medicine
DX: A41.9 Sepsis, unspecified organism (principal); K72.00 Acute and subacute hepatic failure without coma; I81 Portal vein thrombosis; C22.0 Liver cell carcinoma; N39.0 Urinary tract infection, site not specified; D61.818 Other pancytopenia; I10 Essential (primary) hypertension; E78.5 Hyperlipidemia, unspecified; Z51.5 Encounter for palliative care; M94.0 Chondrocostal junction syndrome [Tietze]; D69.6 Thrombocytopenia, unspecified; E87.5 Hyperkalemia; R79.89 Other specified abnormal findings of blood chemistry; K70.30 Alcoholic cirrhosis of liver without ascites; I48.91 Unspecified atrial fibrillation; F17.220 Nicotine dependence, chewing tobacco, uncomplicated; R62.7 Adult failure to thrive; Z95.4 Presence of other heart-valve replacement; Z93.2 Ileostomy status; Z79.899 Other long term (current) drug therapy; R63.0 Anorexia; Z90.49 Acquired absence of other specified parts of digestive tract; Z85.048 Personal history of other malignant neoplasm of rectum, rectosigmoid junction, and anus; Z68.25 Body mass index [BMI] 25.0-25.9, adult
CPT/HCPCS: 36415; 71045; 71260; 71275; 72191; 74175; 74177; 78227; 80053; 80074; 80307; 81003; 81015; 82103; 82104; 82105; 82378; 82553; 82728; 83516; 83550; 83605; 83690; 83735; 84484; 85007; 85025; 85027; 85610; 85730; 86038; 86225; 87040; 87517; 87635; 93005; 93010; 96361; 96374; 96375; A9537; J0360; J0696; J1815; J2270; J2405; J2550; J3490; Q0163; Q9967; U0003